=== PATIENT | male | born 1950 | race Caucasian/White ===

== ENCOUNTER 2019-07-24 10:48 | Inpatient (IN) | payer OTHER, SELFPAY ==
[2019-07-24] VITALS (10 sets, daily range): BP systolic 117–156; BP diastolic 71–92; PULSE 70–92; RESP 14–20; TEMP 36.6–37; O2SAT 94–98; BMI 31.7
--- NOTE | 2019-07-24 11:20 | XR_ITS ---
WS: [id number] PORTABLE CHEST HISTORY: abd pain COMPARISON: None available. Lungs are clear and well expanded. No pleural effusion or pneumothorax. Cardiac size: Normal. Mediastinum/Aorta: Normal mediastinum. No osseous abnormality seen. XR/XR chest 1V portable [id number] IMPRESSION: Unremarkable portable chest.
--- NOTE | 2019-07-24 11:20 | CT_ITS ---
WS: [id number] CT ABDOMEN AND PELVIS WITH CONTRAST HISTORY: Abdominal pain. TECHNIQUE: Imaging performed of the abdomen and pelvis with IV contrast. Single phase imaging of the abdomen. Coronal and sagittal reformats are submitted. All CT scans at [facility] use at least one of these dose optimization techniques: automated exposure control; mA and/or kV adjustment per patient size (includes targeted exams where dose is matched to clinical indication); or iterativ e reconstruction. IV CONTRAST: Omnipaque 300; 95 mL IV. Oral contrast: No DLP: 1595.26 mGy.cm COMPARISON: None available. Lower thorax: Lung bases are clear. Heart is normal size. No hiatal hernia. Liver/biliary system: Normal size with no intrahepatic dilatation. Gallbladder: Gallbladder is contracted. No adjacent inflammation. Pancreas: Normal. Spleen: Normal. Adrenal glands: Normal. Right kidney: Normal. Left kidney: Normal. Aorta: Mild atherosclerosis. Lymphadenopathy: None. Free fluid: None. GI tract: Normal appendix. High-grade small bowel obstruction. Proximal and mid small bowel loops are dilated with fluid measuring up to 3.8 cm in diameter. Distal small bowel loops are collapsed. Suspe ct the transition point may be just to the RIGHT of midline. Abdominal wall: Unremarkable abdominal wall. No hernia. Pelvis: Inguinal canals are patent bilaterally containing fat only. Prostate gland is slightly enlarg ed. Bones: Unremarkable. CT/CT abdomen pelvis w con* [id number] IMPRESSION: 1. High-grade mid small bowel obstruction. I suspect the transition point is i n the mid small bowel just to the RIGHT of midline. May be due to adhesions. 2. No free fluid or free air at this time. 3. Normal appendix.
[2019-07-24] MEDS: ondansetron 2 mg/ML SDV 2 mL 4 MG IVP (11:28)
[2019-07-24] MEDS: sodium chloride 0.9% 1,000 ML 999 ML IV (11:29)
[2019-07-24 11:31] LABS: Basophils % 0.3 %; Hematocrit 44.9 % (42.0-52.0); Hemoglobin 15.2 g/dL (11.7-16.6); Lymphocytes % 9.5 %; Mean Corpuscular HGB Conc 33.9 g/dL (30.0-36.0); Mean Corpuscular Hemoglobin 31.3 pg (28.0-34.0); Mean Corpuscular Volume 92.4 fL (80-94); Mean Platelet Volume 9.6 fL (7.4-10.4); Monocytes # 0.8 10^3/uL (0.2-0.9); Monocytes % 7.4 %; Neutrophils # 8.6 10^3/uL (1.8-7.7); Neutrophils % 82.2 %; Nucleated Red Blood Cells % 0 %; Platelet Count 296 10^3/cmm (130-400); Red Blood Count 4.86 10^6/uL (4.1-5.3); Red Cell Distribution Width 13.3 % (12.1-15.1); White Blood Count 10.5 10^3/uL (4.0-10.0)
--- NOTE | 2019-07-24 11:39 | ED_ITS ---
HPI - Abdominal Pain General: Chief Complaint: Abdominal Pain Stated Complaint: ABD PAIN Time Seen by Provider: 07/24/19 11:13 History of Present Illness: Associated Symptoms: Reports nausea Review of Systems General: Reports: 10 or more systems reviewed and unremarkable except in HPI and below GI: Reports: abdominal pain and nausea PFSH ED PFSH: Social History Smoking and tobacco status: former smoker Physical Exam Const: COMMON NORMALS: no apparent distress, average body habitus, oriented x3, no limitations, healthy appearing, alert and well nourished HENMT: COMMON NORMALS: normocephalic, head/scalp atraumatic, hearing grossly normal bilaterally, external ears normal, EAC's normal, TM's normal bilaterally, external nose normal, nasal mucous membranes and turbinates normal, moist oral mucous membranes, oropharynx normal, dentition normal and gingiva normal HEAD & SCALP: normocephalic and atraumatic NOSE: external nose normal and nasal mucous membranes and turbinates normal EXTERNAL EAR: Yes external ears normal EXTERNAL AUDITORY CANAL: EAC's normal TYMPANIC MEMBRANE: TM's normal bilaterally Eye: COMMON NORMALS: PERRL, EOMs intact bilaterally, conjunctivae normal, no scleral icterus, no papilledema, normal visual huntley by confrontation and fundi normal bilaterally CONJUNCTIVA: Yes conjunctivae normal PUPIL: Yes PERRL DIRECT OPHTHALMOSCOPY: Yes no papilledema and Yes fundi normal bilaterally Neck/C-Spine: COMMON NORMALS: full ROM, no lymphadenopathy, supple, no meningeal signs, no JVD, thyroid normal and no carotid bruits THYROID: thyroid normal Chest: COMMONS NORMALS: inspection of chest normal and palpation of chest normal Resp: COMMON NORMALS: normal respiratory effort, no retractions, no use of accessory muscles, clear to auscultation bilaterally and percussion normal AUSCULTATION: clear to auscultation bilaterally PERCUSSION: percussion normal Cardio: COMMON NORMALS: no JVD, regular rate, regular rhythm, S1 normal heart sound, S2 normal heart sound, no gallops, no clicks, no murmurs, no rub and peripheral pulses 2+ throughout RATE: regular rate RHYTHM: regular rhythm HEART SOUNDS: S1 normal and S2 normal PERIPHERAL PULSES: pulses 2+ throughout GI: COMMON NORMALS: soft to palpation, no hepatosplenomegaly, no masses and no bruits INSPECTION: Yes abdominal distension AUSCULTATION: Yes hypoactive bowel sounds PALPATION: Yes soft, Yes tender Details: other, Yes no hepatosplenomegaly, No hepatomegaly, No splenomegaly, No hernia, No pulsatile mass and No abdominal wall crepitus : COMMON NORMALS: Yes no CVA tenderness BLADDER/KIDNEY EXAM: Yes no CVA tenderness Back/Pelvis: COMMON NORMALS: no CVA tenderness, thoracic and lumbar spine normal to inspection, no thoracic nor lumbar tenderness, thoraco-lumbar ROM normal and straight leg raise negative bilaterally Extremity: COMMON NORMALS: normal to inspection, full ROM, normal capillary refill, no joint enlargement, no clubbing, cyanosis or edema, no calf tenderness and no pedal edema Neuro: COMMON NORMALS: oriented x3 SENSORIUM/ORIENTATION: Yes alert MENINGEAL SIGNS: Yes no meningeal signs Skin: COMMON NORMALS: no rashes or lesions noted, no wounds, skin turgor normal, no jaundice, no petechiae and no mottling GENERAL SKIN EXAM: no rashes or lesions noted and turgor normal Procedures Intubation Mg Given: 20 Mg Given: 200 Course Vital Signs: Vital signs: Vital Signs Temperature 98.1 F 07/24/19 11:08 Pulse Rate 85 07/24/19 12:25 Respiratory Rate 16 07/24/19 12:25 Blood Pressure 142/92 07/24/19 12:25 Pulse Oximetry 96 07/24/19 12:25 MDM - Abdominal Pain Lab Data: Labs: Lab Results 07/24/19 07/24/19 07/24/19 Range/Units 11:25 11:25 11:25 WBC 10.5 H (4.0-10.0) 10^3/ uL RBC 4.86 (4.1-5.3) 10^6/u L Hgb 15.2 (11.7-16.6) g/dL Hct 44.9 (42.0-52.0) % MCV 92.4 (80-94) fL MCH 31.3 (28.0-34.0) pg MCHC 33.9 (30.0-36.0) g/dL RDW 13.3 (12.1-15.1) % Plt Count 296 (130-400) 10^3/c mm MPV 9.6 (7.4-10.4) fL Neut % (Auto) 82.2 % Lymph % (Auto) 9.5 % [place] % (Auto) 7.4 % Eos % (Auto) 0.0 % Baso % (Auto) 0.3 % Neut # (Auto) 8.6 H (1.8-7.7) 10^3/u L Lymph # (Auto) 1.0 (0.8-4.8) 10^3/u L [place] # (Auto) 0.8 (0.2-0.9) 10^3/u L Eos # (Auto) 0.0 (0.0-0.8) 10^3/u L Baso # (Auto) 0.0 (0.0-0.1) 10^3/u L Nucleated RBC % (a uto) 0 % Nucleated RBCs # 0.0 /100WBC Sodium 136 (136-145) mmol/L Potassium 4.1 (3.5-5.1) mmol/L Chloride 95 L (98-107) mmol/L Carbon Dioxide 27 (22-29) mmol/L Anion Gap 18.1 (5-19) BUN 15 (8-23) mg/dL Creatinine 1.0 (0.7-1.2) mg/dL GFR Calculation 74.1 L (90-130) mL/min Glucose 115 (65-115) mg/dL Calculated Osmolal ity 279 L (285-295) mOsm/k g Lactate 0.8 (0.5-2.2) mmol/L Calcium 10.1 (8.5-10.5) mg/dL Total Bilirubin 0.6 (0.15-1.2) mg/dL AST 25 (0-40) U/L ALT 16 (0-41) U/L Alkaline Phosphata se 88 (40-130) IU/L Total Protein 8.0 (6.6-8.7) g/dL Albumin 5.2 (3.5-5.2) g/dL Globulin 2.8 (1.3-4.6) g/dL Lipase 5 L (13-60) U/L Urine Color (Yellow) Urine Appearance (CLEAR) Urine pH (5-7) Ur Specific Gravit y (1.005-1.030) Urine Protein (Negative) Urine Glucose (UA) (Normal) Urine Ketones (Negative) Urine Blood (Negative) Urine Nitrate (Negative) Urine Bilirubin (NEGATIVE) Prot Sulfosalicyli c Acd Urine Urobilinogen (Negative) mg/dL Ur Leukocyte Samreen ase (Negative) Urine RBC (0-2) /hpf Urine WBC (0-5) /hpf Ur Squamous Epith Cells (0-5) Urine Bacteria (NONE) 07/24/19 Range/Units 11:39 WBC (4.0-10.0) 10^3/ uL RBC (4.1-5.3) 10^6/u L Hgb (11.7-16.6) g/dL Hct (42.0-52.0) % MCV (80-94) fL MCH (28.0-34.0) pg MCHC (30.0-36.0) g/dL RDW (12.1-15.1) % Plt Count (130-400) 10^3/c mm MPV (7.4-10.4) fL Neut % (Auto) % Lymph % (Auto) % [place] % (Auto) % Eos % (Auto) % Baso % (Auto) % Neut # (Auto) (1.8-7.7) 10^3/u L Lymph # (Auto) (0.8-4.8) 10^3/u L [place] # (Auto) (0.2-0.9) 10^3/u L Eos # (Auto) (0.0-0.8) 10^3/u L Baso # (Auto) (0.0-0.1) 10^3/u L Nucleated RBC % (a uto) % Nucleated RBCs # /100WBC Sodium (136-145) mmol/L Potassium (3.5-5.1) mmol/L Chloride (98-107) mmol/L Carbon Dioxide (22-29) mmol/L Anion Gap (5-19) BUN (8-23) mg/dL Creatinine (0.7-1.2) mg/dL GFR Calculation (90-130) mL/min Glucose (65-115) mg/dL Calculated Osmolal ity (285-295) mOsm/k g Lactate (0.5-2.2) mmol/L Calcium (8.5-10.5) mg/dL Total Bilirubin (0.15-1.2) mg/dL AST (0-40) U/L ALT (0-41) U/L Alkaline Phosphata se (40-130) IU/L Total Protein (6.6-8.7) g/dL Albumin (3.5-5.2) g/dL Globulin (1.3-4.6) g/dL Lipase (13-60) U/L Urine Color Yellow (Yellow) Urine Appearance Hazy A (CLEAR) Urine pH 8 H (5-7) Ur Specific Gravit y 1.010 (1.005-1.030) Urine Protein Neg (Negative) Urine Glucose (UA) Norm (Normal) Urine Ketones 2+ H (Negative) Urine Blood Neg (Negative) Urine Nitrate Negative (Negative) Urine Bilirubin Neg (NEGATIVE) Prot Sulfosalicyli c Acd Negative Urine Urobilinogen Norm (Negative) mg/dL Ur Leukocyte Samreen ase Negative (Negative) Urine RBC None (0-2) /hpf Urine WBC None (0-5) /hpf Ur Squamous Epith Cells 5-10 H (0-5) Urine Bacteria 1+ H (NONE) Discharge Plan Discharge Patient Disposition: Admitted As Inpatient Clinical Impression: Small bowel obstruction Condition: Fair Referrals: Iván Horne [Primary Care Provider] - Coding Level of Care Code ED Track Supervisor for Chg Fwd Exam Comprehensive
[2019-07-24 11:45] LABS: Alanine Aminotransferase 16 U/L (0-41); Albumin Level 5.2 g/dL (3.5-5.2); Alkaline Phosphatase 88 IU/L (40-130); Anion Gap 18.1 (5-19); Aspartate Amino Transferase 25 U/L (0-40); Blood Urea Nitrogen 15 mg/dL (8-23); Calcium 10.1 mg/dL (8.5-10.5); Carbon Dioxide 27 mmol/L (22-29); Chloride 95 mmol/L (98-107); Globulin 2.8 g/dL (1.3-4.6); Glomerular Filtration Rate 74.1 mL/min (90-130); Glucose 115 mg/dL (65-115); Lipase 5 U/L (13-60); Osmolality Calculated 279 mOsm/kg (285-295); Potassium 4.1 mmol/L (3.5-5.1); Sodium 136 mmol/L (136-145); Total Bilirubin 0.6 mg/dL (0.15-1.2)
[2019-07-24 11:46] LABS: Lactate (Lactic Acid level) 0.8 mmol/L (0.5-2.2)
[2019-07-24 12:04] LABS: Add Urine Microscopic? YES; Bilirubin Urine Neg (NEGATIVE); Blood Urine Neg (Negative); Glucose Urine UA Norm (Normal); Ketones Urine 2+ (Negative); Leukocyte Esterase Urine Negative (Negative); Nitrate Urine Negative (Negative); Protein Urine Neg (Negative); Sulfosalicylic Acid Urine Negative; Urine Appearance Hazy (CLEAR); Urine Color Yellow (Yellow); Urobilinogen Urine Norm (Negative); pH Urine 8 (5-7)
[2019-07-24 12:12] LABS: Add Urine Culture? No; Bacteria Urine 1+
[2019-07-24] MEDS: iohexol 300 mg/mL 100 mL Btl IV (12:12)
[2019-07-24] MEDS: sodium chloride 0.9% 1,000 ML 150 ML IV ×3 (12:57→23:15)
--- NOTE | 2019-07-24 13:00 | PC.NURSE ---
Dr Aguilar at bedside speaking with patient.
--- NOTE | 2019-07-24 13:24 | PM.HP ---
Providers/Chief Complaint Admitting Physician: Kar Aguilar MD Primary Care Provider: Iván Horne Chief Complaint: SMALL BOWEL OBSTRUCTION History of Present Illness Sharif Livingston is a 69 year old male presents to ED with severe mid abdomen sharp non radiating pain that woke him up this morning. He denied previous history of the same but reports that for the last couple of years he had some generalized discomfort and lately noted to get full and distended with even minimal oral intake. He was nauseated this morning and even tried to vomit but had minimal bilious fluid out only. He had normal formed bowel movement this morning without evidence of hematochezia or melena. He had no flatus today. Denies any alleviating or aggravating factors. He went to bed in his usual state of health. He had colonoscopy 2 years ago with couple of polyps removed. [facility] and reports that Dr. Fraire who is now retired was planning to do further evaluation of his abdominal complaints with imaging. He denies any previous abdominal surgery. He recently seen [facility] [employer] and his CPAP was changed to BiPAP for treatment of MERY but he can not tolerate it. He denies any previous history of heart disease, diabetes or stroke. 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 He denies any chest pain even with exersion. He denies shortness of breath but reports dyspnea on fast and prolonged walking which did not change for many years. In ED he was found to have small bowel obstruction with transition point which is concerning since patient had no previous bowel surgeries and Dr. Ang was consulted as patient likely will require surgery. Review of Systems Const: Denies: fever or chills Eyes: Denies: change in vision ENMT: Denies: throat pain or change in hearing Card: Denies: chest pain, edema or lightheadedness Resp: Reports: non-productive cough (for last 2-3 days); Denies: shortness of breath or productive cough GI: Reports: abdominal pain, nausea, vomiting and difficulty swallowing (described ad I can choke with any oral intake for many years off and on ); Denies: diarrhea, constipation, blood in stool or black tarry stool Musc: Denies: joint pain or joint swelling Skin/Breast: Denies: rash or redness Neuro: Reports: headache (off and on. takes tylenol as needed); Denies: weakness in extremities Psych: Denies: depression Endo: Denies: excessive sweating Braden/Lymph: Denies: easy bleeding or tender lymph nodes All/Imm: Denies: throat swelling Medications/Allergies Home Medications Medication Instructions Recorded Confirmed Last Taken Type aspirin 81 mg PO DAILY 07/24/19 07/24/19 07/23/19 History coenzyme Q10 100 mg PO DAILY 07/24/19 07/24/19 07/23/19 History multivitamin 1 tab PO DAILY 07/24/19 07/24/19 07/23/19 History omeprazole 20 mg PO DAILY 07/24/19 07/24/19 07/23/19 History Allergies Allergy/AdvReac Type Severity Reaction Status Date / Time No Known Allergies Allergy Verified 07/24/19 11:12 PFSH Acute PFSH: Medical History (Updated 07/24/19 @ 13:52 by Kar Aguilar MD) Chronic GERD Left ACL tear s/p surgery MERY (obstructive sleep apnea) Surgical History (Updated 07/24/19 @ 13:46 by Kar Aguilar MD) H/O vasectomy Social History (Updated 07/24/19 @ 13:48 by Kar Aguilar MD) Smoking and tobacco status: former smoker Quit status (tobacco): quit date established Planned quit date: 05/06/95 Alcohol intake: current Alcohol intake frequency: few times a month Alcohol type: beer Substance/Drug Use: never Lives independently: Yes Household members: spouse Marital status: Current occupational status: retired History of recent travel: No Vitals/I&O/Wt Last Vital Signs Temp 98.1 F 07/24/19 11:08 Pulse 92 07/24/19 13:00 Resp 19 H 07/24/19 13:00 BP 143/89 07/24/19 13:00 Pulse Ox 95 07/24/19 13:00 Weight last 48 hrs Weight 97.522 kg Physical Exam Const: COMMON NORMALS: no apparent distress, oriented x3 and alert HENMT: COMMON NORMALS: normocephalic and head/scalp atraumatic HEAD & SCALP: normocephalic and atraumatic Eye: COMMON NORMALS: EOMs intact bilaterally, conjunctivae normal and no scleral icterus CONJUNCTIVA: Yes conjunctivae normal Neck/C-Spine: COMMON NORMALS: no lymphadenopathy and no meningeal signs Lymph: LYMPHATIC: no lymphadenopathy noted Chest: COMMONS NORMALS: palpation of chest normal Resp: COMMON NORMALS: no use of accessory muscles and clear to auscultation bilaterally AUSCULTATION: clear to auscultation bilaterally Cardio: COMMON NORMALS: regular rate, regular rhythm and no murmurs RATE: regular rate RHYTHM: regular rhythm OTHER: No lower extremity edema GI: COMMON NORMALS: soft to palpation INSPECTION: Yes abdominal distension PALPATION: Yes soft, No firm, Yes tender, No guarding and No rigid RECTAL EXAM: Yes deferred : COMMON NORMALS: Yes no CVA tenderness BLADDER/KIDNEY EXAM: Yes no CVA tenderness Back/Pelvis: COMMON NORMALS: no CVA tenderness and thoracic and lumbar spine normal to inspection Extremity: COMMON NORMALS: normal to inspection and normal capillary refill Neuro: COMMON NORMALS: oriented x3 and no focal motor deficits SENSORIUM/ORIENTATION: Yes alert MENINGEAL SIGNS: Yes no meningeal signs Psych: COMMON NORMALS: mental status grossly normal, thought process normal and cooperative THOUGHT PROCESS: normal thought process Skin: COMMON NORMALS: no rashes or lesions noted GENERAL SKIN EXAM: no rashes or lesions noted Data : 07/24/19 11:25 07/24/19 11:25 A&P Assessment and plan (1) Small bowel obstruction: Status: Acute (2) MERY (obstructive sleep apnea): can not tolerate BiPAP/CPAP. Status: Acute Additional A&P Information PLAN: Continue IV fluids Place NG tube to low intermittent wall suction. Awaiting surgical evaluation. Patient is a low risk for adverse perioperative cardiac outcome and this was discussed with patient and he agrees to proceed with surgery if deemed necessary. Attestations Medical Necessity Statement*: Patient with small bowel obstruction requires close inpatient monitoring and treatment. I expect patient will require more than 2 midnights. 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
--- NOTE | 2019-07-24 14:23 | PC.NURSE ---
Patient arrived on unit.
[2019-07-24] MEDS: pantoprazole 40 mg SDV IVP (16:36)
[2019-07-24] MEDS: heparin 5,000 unit/mL INJ 1 mL 5000 UNIT SUBCUT ×2 (16:37→21:18)
--- NOTE | 2019-07-24 18:39 | PC.NURSE ---
tylenol order RCVD order for Tylenol from Dr Aguilar. Patient Safety Officer put order in for Tylenol. Per Dr Aguilar, clamp NG for 30min after administration of Tylenol.
[2019-07-24] MEDS: acetaminophen 325 mg Tablet 650 MG PO (19:38)
[2019-07-25] VITALS (7 sets, daily range): BP systolic 106–150; BP diastolic 69–88; PULSE 64–108; RESP 16–20; TEMP 36.9–37.6; O2SAT 92–96
[2019-07-25] MEDS: pantoprazole 40 mg SDV IVP ×2 (01:25→14:46)
[2019-07-25] MEDS: acetaminophen 325 mg Tablet 650 MG PO ×2 (01:30→21:29)
[2019-07-25 05:08] LABS: Basophils # 0.1 10^3/uL (0.0-0.1); Basophils % 0.5 %; Eosinophils # 0.1 10^3/uL (0.0-0.8); Eosinophils % 1.1 %; Hematocrit 39.8 % (42.0-52.0); Hemoglobin 13.1 g/dL (11.7-16.6); Lymphocytes # 1.8 10^3/uL (0.8-4.8); Lymphocytes % 17.8 %; Mean Corpuscular HGB Conc 32.9 g/dL (30.0-36.0); Mean Corpuscular Hemoglobin 30.7 pg (28.0-34.0); Mean Corpuscular Volume 93.2 fL (80-94); Mean Platelet Volume 9.9 fL (7.4-10.4); Monocytes # 1.1 10^3/uL (0.2-0.9); Monocytes % 11.1 %; Neutrophils # 6.8 10^3/uL (1.8-7.7); Neutrophils % 69.1 %; Nucleated Red Blood Cells % 0 %; Platelet Count 242 10^3/cmm (130-400); Red Blood Count 4.27 10^6/uL (4.1-5.3); Red Cell Distribution Width 13.5 % (12.1-15.1); White Blood Count 9.9 10^3/uL (4.0-10.0)
[2019-07-25] MEDS: sodium chloride 0.9% 1,000 ML 150 ML IV ×3 (05:21→21:31)
[2019-07-25] MEDS: heparin 5,000 unit/mL INJ 1 mL 5000 UNIT SUBCUT ×3 (05:22→21:33)
[2019-07-25 05:32] LABS: Alanine Aminotransferase 14 U/L (0-41); Albumin Level 3.9 g/dL (3.5-5.2); Alkaline Phosphatase 69 IU/L (40-130); Aspartate Amino Transferase 18 U/L (0-40); Blood Urea Nitrogen 11 mg/dL (8-23); Calcium 8.8 mg/dL (8.5-10.5); Carbon Dioxide 24 mmol/L (22-29); Chloride 107 mmol/L (98-107); Globulin 3.1 g/dL (1.3-4.6); Glomerular Filtration Rate 83.7 mL/min (90-130); Glucose 106 mg/dL (65-115); Magnesium 2.2 mg/dL (1.7-2.3); Osmolality Calculated 284 mOsm/kg (285-295); Phosphorus 2.7 mg/dL (2.5-4.5); Sodium 139 mmol/L (136-145); Total Bilirubin 0.5 mg/dL (0.15-1.2)
--- NOTE | 2019-07-25 08:07 | XR_ITS ---
WS: [id number] ABDOMEN 2 VIEW(S) HISTORY: sbo COMPARISON: 07/24/2019. Nasogastric tube has been placed with tip coiled in the fundus. No free air. There is air throughout the entire GI tract. There are still small bowel fluid-filled loops of bowel with less distention. Lumbar spondylosis. XR/XR abdomen min 2V [id number] IMPRESSION: 1. Nasogastric tube with tip coiled in the fundus of the stomach. 2. Improving small bowel distention without complete obstruction.
--- NOTE | 2019-07-25 09:27 | PC.CHAP ---
Pastoral Care Encounter/Spiritual Assessment Type of Contact [] Declined kiss mixer visit [] Patient/Family/Request visit [] Outpatient visit [] Follow-up visit [] Physician referral [] Code/Alert [x] Routine visit [] Staff referral [] Actively dying [] Patient sleeping [] Family support [] [] Out of room [] Palliative care [] [] Receiving care in room [] Pre-surgical visit [] Trauma [] Long length of stay [] ICU visit [] Other: Relational/Emotional Strength [x] Patient feels connected with others/family/visitors/staff [] Distress [] Loneliness/isolation [] Abandonment Spirituality of Patient [x] Person of Renata [x] Attends Muslim of their Renata [x] Believes in Prayer [x] Reads Bible or Temple materials [] There are Spiritual issues to be addressed [employer] Team Member Interventions [x] Prayer [x] Active listening [x] Non-anxious presence [] Spiritual/emotional support [] Crisis/trauma care [] Spiritual counseling [] Bereavement support [] Provided bereavement packet [x] Provided Bible/devotional materials [] Provided toy/stuffed animal, coloring book to patient or family member [] Provided Communion [] Anointing/S[place]ney [] Salvation [x] Completed spiritual assessment [] Other: Impact on Illness or Injury [] Angry [] Fearful [] Anxious [] Often cries [] Exhaustion [] Unable to work [] Unable to attend mandaen [] Unable to walk/stand [] Unable to read [] Unable to drive [] Unable to eat/drink [] Unable to sleep [] Unable to be with family [] Patient intubated [] Other: Summary patient say feeling better Time spent with patient 15 min
[2019-07-25] MEDS: aspirin 81 mg Chew Tablet PO (09:59)
--- NOTE | 2019-07-25 10:11 | PM.PN ---
Subjective Subjective: Interval history: Patient denies any shortness of breath or chest pain. Reports passing gas this morning but had no bowel movement since yesterday morning. Reports that his abdominal distention and pain gone. He had minimal NG tube output. Vitals/I&O/Wt Last Vital Signs Temp 98.4 F 07/25/19 07:51 Pulse 82 07/25/19 07:51 Resp 18 07/25/19 07:51 BP 112/74 07/25/19 07:51 Pulse Ox 94 07/25/19 07:51 07/24/19 07/25/19 07/25/19 22:59 06:59 14:59 Intake Total 1397.5 / 2397.5 1142.5 / 3540.0 Output Total 600 / 600 770 / 1370 780 / 780 Balance 797.5 / 1797.5 372.5 / 2170.0 -780 / -780 Weight last 48 hrs Weight 97.522 kg Physical Exam Const: COMMON NORMALS: no apparent distress and oriented x3 Resp: COMMON NORMALS: normal respiratory effort and clear to auscultation bilaterally AUSCULTATION: clear to auscultation bilaterally Cardio: COMMON NORMALS: regular rate, regular rhythm and S2 normal heart sound RATE: regular rate RHYTHM: regular rhythm HEART SOUNDS: S2 normal OTHER: No lower extremity edema GI: COMMON NORMALS: normal to inspection, nondistended, normoactive bowel sounds, soft to palpation and non-tender PALPATION: Yes soft Neuro: COMMON NORMALS: oriented x3 and no focal motor deficits Data : 07/25/19 04:48 07/25/19 04:48 A&P Assessment and plan (1) Small bowel obstruction: Status: Acute (2) MERY (obstructive sleep apnea): can not tolerate BiPAP/CPAP. Status: Acute Additional A&P Information PLAN: Continue IV fluids We will start patient on lactulose and try enema Discussed with Dr. Ang yesterday. It appears that constipation could possibly play a major role. Attestations Medical Necessity Statement*: Patient with small bowel obstruction requires close inpatient monitoring and treatment until deemed safe for discharge. 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
[2019-07-25] MEDS: mineral oil ENEMA 133 mL PR (12:27)
--- NOTE | 2019-07-25 13:59 | PM.CONSULT ---
Providers/Reason For Consult Consulting Physican/Specialty*: Dr. Aguilar Reason for Consult*: Small bowel obstruction Attending Physician: Kar Aguilar MD Primary Care Provider: Iván Horne History of Present Illness History of Present Illness Sharif Livingston is a 69 year old male who presented to the ER with generalized abdominal pain associated nausea yesterday. Patient states that he woke up the night before at around 130 with the symptoms. Patient has never had any abdominal surgeries and he had a colonoscopy a few years ago when polyps were removed. He states that he takes Metamucil every day and he has daily bowel movements. Patient states he had nausea but no vomiting. No fevers or chills. No prior abdominal surgeries. An NG tube was placed and this morning he feels a lot better. His distention has resolved. He states that he had a large bowel movement. Review of Systems General: Reports: 10 or more systems reviewed and unremarkable except in HPI and below Meds/Allergies Home Medications and Allergies Home Medications Medication Instructions Recorded Confirmed Type aspirin 81 mg PO DAILY 07/24/19 07/24/19 History coenzyme Q10 100 mg PO DAILY 07/24/19 07/24/19 History multivitamin 1 tab PO DAILY 07/24/19 07/24/19 History omeprazole 20 mg PO DAILY 07/24/19 07/24/19 History Allergies Allergy/AdvReac Type Severity Reaction Status Date / Time No Known Allergies Allergy Verified 07/24/19 11:12 Current Medications Current Medications Generic Name Dose Route Start Last Admin Trade Name Freq PRN Reason Stop Dose Admin Acetaminophen 650 mg 07/24/19 18:38 07/25/19 01:30 Tylenol PO 650 mg Q6H PRN Administration MILD PAIN Aspirin 81 mg 07/25/19 09:00 07/25/19 09:59 Aspirin Chewable PO 81 mg DAILY JAMIA Administration Heparin Sodium (Beef Lung) 5,000 unit 07/24/19 14:00 07/25/19 05:22 Heparin SUBCUT 5,000 unit Q8H JAMIA Administration Sodium Chloride 1,000 mls @ 150 mls/hr 07/24/19 13:00 07/25/19 05:21 Sodium Chloride 0.9% IV 150 mls/hr .Q6H40M JAMIA Administration Pantoprazole Sodium 40 mg 07/24/19 14:15 07/25/19 01:25 Protonix IVP 40 mg Q12H JAMIA Administration PFSH Acute PFSH: Medical History Chronic GERD Left ACL tear s/p surgery MERY (obstructive sleep apnea) Surgical History H/O vasectomy Status post colonoscopy with polypectomy Social History Smoking and tobacco status: former smoker Quit status (tobacco): quit date established Planned quit date: 05/06/95 Alcohol intake: current Alcohol intake frequency: few times a month Alcohol type: beer Substance/Drug Use: never Lives independently: Yes Household members: spouse Marital status: Current occupational status: retired History of recent travel: No Vitals/I&O/Wt Last Vital Signs Temp 98.7 F 07/25/19 11:43 Pulse 108 H 07/25/19 11:43 Resp 18 07/25/19 11:43 BP 150/88 07/25/19 11:43 Pulse Ox 95 07/25/19 11:43 07/24/19 07/25/19 07/25/19 22:59 06:59 14:59 Intake Total 1397.5 / 3540.0 1142.5 / 3540.0 Output Total 600 / 1370 770 / 1370 1330 / 1330 Balance 797.5 / 2170.0 372.5 / 2170.0 -1330 / -1330 Weight last 48 hrs Weight 215 lb Physical Exam Narrative: EXAM NARRATIVE: HEENT: Normocephalic, NG tube right nare Eye: Sclera /conjunctiva normal Respiratory and chest: Bilateral clear breath sounds on auscultation Cardiovascular: Normal S1 and S2 heart sounds Abdomen: Soft to palpation, nontender, nondistended Neurological: Oriented to place person and time Skin: Intact, no lesions appreciated on gross exam A&P Assessment and plan (1) Small bowel obstruction: 69-year-old gentleman who presented with abdominal pain and nausea yesterday with CT scan findings concerning for small bowel obstruction. Patient had a large amount of fecal retention noted on the CT scan. He is hemodynamically stable, no evidence of peritonitis. This morning he feels a lot better and had a large bowel movement after an enema. Clamp NG tube Start clear liquid diet 1 bottle of magnesium citrate today Soapsuds enema later today Start lactulose 15 cc p.o. 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
[2019-07-25] MEDS: magnesium citrate Btl 296 mL PO (14:46)
[2019-07-25] MEDS: lactulose oral liq 20 gm/30 mL UDC 30 GM PO ×2 (14:46→21:32)
[2019-07-26] VITALS: BP 139/92; PULSE 77; RESP 18; TEMP 36.7; O2SAT 94
[2019-07-26] MEDS: pantoprazole 40 mg SDV IVP (01:17)
[2019-07-26 04:00] VITALS: BP 156/97; PULSE 87; RESP 16; TEMP 36.8; O2SAT 94
[2019-07-26] MEDS: heparin 5,000 unit/mL INJ 1 mL 5000 UNIT SUBCUT (05:11)
[2019-07-26] MEDS: sodium chloride 0.9% 1,000 ML 150 ML IV (05:11)
[2019-07-26 05:47] LABS: Basophils % 0.3 %; Eosinophils # 0.1 10^3/uL (0.0-0.8); Eosinophils % 1.2 %; Hematocrit 40.4 % (42.0-52.0); Lymphocytes # 1.4 10^3/uL (0.8-4.8); Lymphocytes % 14.5 %; Mean Corpuscular HGB Conc 32.2 g/dL (30.0-36.0); Mean Corpuscular Hemoglobin 31.3 pg (28.0-34.0); Mean Corpuscular Volume 97.1 fL (80-94); Mean Platelet Volume 10.4 fL (7.4-10.4); Monocytes # 1.2 10^3/uL (0.2-0.9); Neutrophils # 6.6 10^3/uL (1.8-7.7); Neutrophils % 70.5 %; Nucleated Red Blood Cells % 0 %; Positive C 1; Red Blood Count 4.16 10^6/uL (4.1-5.3); Red Cell Distribution Width 13.5 % (12.1-15.1); White Blood Count 9.3 10^3/uL (4.0-10.0)
[2019-07-26 05:56] LABS: Alanine Aminotransferase 11 U/L (0-41); Albumin Level 3.8 g/dL (3.5-5.2); Alkaline Phosphatase 68 IU/L (40-130); Anion Gap 13.7 (5-19); Aspartate Amino Transferase 15 U/L (0-40); Blood Urea Nitrogen 8 mg/dL (8-23); Calcium 9.3 mg/dL (8.5-10.5); Carbon Dioxide 23 mmol/L (22-29); Chloride 107 mmol/L (98-107); Globulin 3.1 g/dL (1.3-4.6); Glomerular Filtration Rate 83.7 mL/min (90-130); Glucose 105 mg/dL (65-115); Magnesium 2.2 mg/dL (1.7-2.3); Osmolality Calculated 286 mOsm/kg (285-295); Phosphorus 2.4 mg/dL (2.5-4.5); Potassium 3.7 mmol/L (3.5-5.1); Sodium 140 mmol/L (136-145); Total Bilirubin 0.5 mg/dL (0.15-1.2); Total Protein 6.9 g/dL (6.6-8.7)
[2019-07-26 06:31] LABS: Platelet Count 302 10^3/cmm (130-400)
[2019-07-26 07:56] VITALS: PULSE 63; O2SAT 94
[2019-07-26 08:00] VITALS: BP 122/80; PULSE 70; RESP 18; TEMP 36.7; O2SAT 96
[2019-07-26] MEDS: docusate sodium 100 mg Capsule PO (08:25)
[2019-07-26] MEDS: lactulose oral liq 20 gm/30 mL UDC 30 GM PO (08:25)
[2019-07-26] MEDS: lactulose oral liq 20 gm/30 mL UDC 10 GM PO (08:25)
[2019-07-26] MEDS: aspirin 81 mg Chew Tablet PO (08:25)
--- NOTE | 2019-07-26 09:23 | P.PN_ITS ---
Subjective Subjective: Interval history: Patient had multiple bowel movements yesterday with enema and magnesium citrate, no nausea or vomiting with NG tube clamped Vitals/I&O/Wt Last Vital Signs Temp 98.1 F 07/26/19 08:00 Pulse 70 07/26/19 08:00 Resp 18 07/26/19 08:00 BP 122/80 07/26/19 08:00 Pulse Ox 96 07/26/19 08:00 07/25/19 07/26/19 07/26/19 22:59 06:59 14:59 Intake Total 1800 / 3920 1120 / 3920 Balance 1800 / 2590 1120 / 2590 Weight last 48 hrs Weight 215 lb Physical Exam Narrative: EXAM NARRATIVE: Abdomen: Soft, nontender, nondistended Data : 07/26/19 05:05 07/26/19 05:05 A&P Assessment and plan (1) Small bowel obstruction: Small bowel obstruction, resolved with bowel rest and NG tube Advance to full liquid diet DC home today and advance as tolerated No follow-up needed Discharge home on bowel regimen Status: Acute Attestations Medical Necessity Statement*: DC home today Coding Level of Care Code 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
--- NOTE | 2019-07-26 10:26 | PM.DCS ---
Discharge Providers Date of Admission: 07/24/19 12:52 Date of Discharge: July 26, 2019 Attending Provider at Admission: Kar Aguilar MD Attending Provider at Discharge: Kar Aguilar MD Primary Care Provider: Iván Horne Diagnoses at Discharge Discharge Diagnosis (1) Small bowel obstruction: Status: Acute Reason for Visit Reason for Visit: Reason For Visit: SMALL BOWEL OBSTRUCTION Hospital Course Discharge Summary: Patient presented with abdominal pain and signs and symptoms of small bowel obstruction which felt to be related to significant underlying constipation. Patient was treated conservatively and gradually improved and this morning reports feeling much better and strong enough to be dismissed home. He was able to tolerate clear liquid diet. He had multiple diarrheal bowel movements with bowel regimen and denies any abdominal pain this morning. He is passing gas. He is ambulating without difficulty. He denies any shortness of breath or chest pain this morning. Discussed with Dr. Ang this morning and from surgical standpoint patient does not need further outpatient follow-up. Physical Exam Const: COMMON NORMALS: no apparent distress and oriented x3 Resp: COMMON NORMALS: normal respiratory effort and clear to auscultation bilaterally AUSCULTATION: clear to auscultation bilaterally Cardio: COMMON NORMALS: regular rate, regular rhythm and S2 normal heart sound RATE: regular rate RHYTHM: regular rhythm HEART SOUNDS: S2 normal OTHER: No lower extremity edema GI: COMMON NORMALS: normal to inspection, nondistended, normoactive bowel sounds, soft to palpation and non-tender PALPATION: Yes soft Neuro: COMMON NORMALS: oriented x3 and no focal motor deficits Discharge Data Data Completed and Pending: Completed Studies During Hospitalization Category Date Time Status CT abdomen pelvis w con* [id number] Urge nt Cat Scan 07/24/19 11:20 Completed XR abdomen min 2V [id number] Urgent Exams 07/25/19 08:07 Completed XR chest 1V bo ble [id number] Urgent Exams 07/24/19 11:20 Completed Pending at discharge Category Date Time Status Complete Blood Co unt w/Auto AM LABS Lab 07/27/19 04:00 Ordered Comprehensive Met abolic Panel AM LA BS Lab 07/27/19 04:00 Ordered Magnesium AM LABS Lab 07/27/19 04:00 Ordered Phosphorus AM LAB S Lab 07/27/19 04:00 Ordered Labs from last 24 hours 07/26/19 07/26/19 05:05 05:05 WBC 9.3 RBC 4.16 Hgb 13.0 Hct 40.4 L MCV 97.1 H MCH 31.3 MCHC 32.2 RDW 13.5 Plt Count 302 MPV 10.4 Neut % (Auto) 70.5 Lymph % (Auto) 14.5 Woodruff % (Auto) 13.0 Eos % (Auto) 1.2 Baso % (Auto) 0.3 Neut # (Auto) 6.6 Lymph # (Auto) 1.4 Woodruff # (Auto) 1.2 H Eos # (Auto) 0.1 Baso # (Auto) 0.0 Nucleated RBC % (a uto) 0 Nucleated RBCs # 0.0 Sodium 140 Potassium 3.7 Chloride 107 Carbon Dioxide 23 Anion Gap 13.7 BUN 8 Creatinine 0.9 GFR Calculation 83.7 L Glucose 105 Calculated Osmolal ity 286 Calcium 9.3 Phosphorus 2.4 L Magnesium 2.2 Total Bilirubin 0.5 AST 15 ALT 11 Alkaline Phosphata se 68 Total Protein 6.9 Albumin 3.8 Globulin 3.1 Vitals: Last Vital Signs Temp 98.1 F 07/26/19 08:00 Pulse 70 07/26/19 08:00 Resp 18 07/26/19 08:00 BP 122/80 07/26/19 08:00 Pulse Ox 96 07/26/19 08:00 Discharge Plan Discharge Patient Disposition: Home, Self-Care Condition: Fair Prescriptions: New docusate sodium 100 mg Capsule 100 mg PO BID Qty: 60 RF: 0 lactulose 20 gram/30 mL Solution 10 g PO DAILY Qty: 1000 RF: 0 sennosides [Senna Lax] 8.6 mg tablet 8.6 mg PO DAILY PRN (Reason: constipation) Qty: 30 RF: 0 Continued multivitamin Tablet 1 tab PO DAILY RF: 0 aspirin 81 mg Tablet,Chewable 81 mg PO DAILY RF: 0 omeprazole 20 mg Tablet,Delayed Release (Dr/Ec) 20 mg PO DAILY RF: 0 coenzyme Q10 100 mg Tablet 100 mg PO DAILY RF: 0 Discharge Orders: Discharge Order (Routine); Ordered 07/26/19 Ordered By: Kar Aguilar Referrals: Iván Horne [Primary Care Provider] - 4-7 days Discharge Diet: Advance as tolerated Discharge Activity: Increase activity as tolerated Activity Restrictions/Additional Instructions: Please call your doctor or present to emergency department if your condition worsens or you develop diarrhea, lightheadedness, fatigue or see blood in your stool or black stool. Please discontinue lactulose if you have diarrhea. Please take senna as needed for constipation but do not take it if you have moderate to severe abdominal pain and in that case please present to emergency department or call your doctor for further evaluation. 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
[2019-07-26 10:52] VITALS: BP 122/80; PULSE 70; RESP 18; TEMP 36.7; O2SAT 96
[2019-07-26 11:35] VITALS: RESP 18; TEMP 36.8; O2SAT 94
== END 2019-07-26 11:42 | disposition home or self-care (01) | DRG 390 ==
LOC: ER 12:52 → MEDSURG 13:11
PROVIDERS: Admitting Provider Internal Medicine; Emergency Provider Family Medicine; Family Provider Internal Medicine; PCP Internal Medicine; Visit Provider Internal Medicine
DX: K56.609 Unspecified intestinal obstruction, unspecified as to partial versus complete obstruction (principal); K21.9 Gastro-esophageal reflux disease without esophagitis; G47.33 Obstructive sleep apnea (adult) (pediatric); Z79.82 Long term (current) use of aspirin; Z87.891 Personal history of nicotine dependence
CPT/HCPCS: 12345; 36415; 71045; 74019; 74177; 80053; 81001; 83605; 83690; 83735; 84100; 85025; 94640; 96372; 96375; 99284; C9113; J1644; J2405; J7030; Q9967

== ENCOUNTER 2019-11-07 10:40 | Outpatient (CLI) | payer OTHER, SELFPAY ==
--- NOTE | 2019-11-07 10:43 | MR_ITS ---
WS: [id number] MRI LUMBAR SPINE NONCONTRAST TECHNIQUE: Sagittal T1, T2 and STIR imaging. Axial T1 and T2 imaging. CLINICAL INFORMATION: BILATERAL NEUROPATHY COMPARISON: None. FINDINGS: Mild lumbar curve. No acute compression. Slight retrolisthesis L2 on L3 and L3 on L4. No high-grade c entral canal stenosis. L1-L2: Normal. L2-L3: Mild annular bulging. Mild facet arthropathy. Mild left and no significant right foraminal amira rowing. Spinal canal is patent. L3-L4: Mild disc bulging with slight narrowing of the right subarticular recess. Slight impingement t raversing right L4 nerve root. Mild left and no significant right foraminal narrowing. Mild facet art hropathy. L4-L5: Right eccentric disc bulging with osteophytic ridging. Slight impingement traversing right L5 nerve root. Mild to moderate right and no significant left foraminal narrowing. Moderate facet arthro xochilt. L5-S1: Mild disc bulging with endplate ridging. Slight effacement of ventral thecal sac. Slight encro achment traversing right S1 nerve root with a tiny annular fissure. Spinal canal and foramen are loredo nt. Mild facet arthropathy. Visualized pelvic bony structures: Normal. Paravertebral soft tissues: Normal. MR/MR lumbar spine wo con* [id number] IMPRESSION: 1. Mild lumbar curve. No acute compression. No high-grade central canal stenos is. 2. Degenerative endplate-type changes at L2-3 with slight retrolisthesis and m ild endplate edema. 3. Right eccentric disc bulging L4-5 impinges the traversing right L5 nerve ro ot in the subarticular recess. Mild to moderate right L4-5 foraminal narrowing. Correlation for right L4 nerve root symptoms. 4. Slight narrowing of the right L3-4 subarticular recess with encroachment tr aversing right L4 nerve root. 5. Mild left L3-L4 foraminal narrowing. 6. Mild facet arthropathy L3-L5.
== END 2019-11-07 10:41 | disposition home or self-care (01) ==
LOC: RADSHAW 10:40
PROVIDERS: Visit Provider Internal Medicine
DX: G62.9 Polyneuropathy, unspecified (principal); M47.816 Spondylosis without myelopathy or radiculopathy, lumbar region; M51.26 Other intervertebral disc displacement, lumbar region
CPT/HCPCS: 72148

== ENCOUNTER → 2020-10-17 08:14 | Outpatient (BNVA) | payer OTHER, SELFPAY | PROVIDERS: Visit Provider Surgery | DX: Z01.812 Encounter for preprocedural laboratory examination (principal); Z20.822 Contact with and (suspected) exposure to COVID-19 | CPT/HCPCS: 87635 ==

== ENCOUNTER 2020-10-23 10:25 | Day surgery (SDC) | payer OTHER, SELFPAY ==
[2020-10-17 12:18] VITALS: BMI 32.5
--- NOTE | 2020-10-23 10:51 | ANES.PREANE2 ---
Pre-Anesthetic Assessment Pre-Anesthetic Assessment: Height/Weight: Height 1.75 m Weight 99.79 kg Proposed Procedure: Operation Date: 10/23/20 12:00 Proposed Procedures p EGD/colon 63382 [id number] Z86.01 K21(Not Applicable) - Florencio Ang MD s Colonoscopy(Not Applicable) - Florencio Ang MD Was Beta Paul taken within 24 hours: N/A Was Clonidine taken within 24 hours: N/A Social: Social History: No alcohol and No tobacco Exam: Pre-Anes Outpt Exam: alert, oriented x 3, clear to auscultation bilaterally and regular rate & rhythm Airway: Submandibular: WNL Cervical ROM: WNL MP: 2 Dentition: False Pulmonary: Pulmonary: Sleep apnea GI: GI: GERD Metabolic: Metabolic: Morbid obesity Anesthetic Plan: ASA status: 2 Anesthesia: MAC Risk of > 500 ml blood loss (7ml/kg in children): No PFSH Anesthesia PFSH: Medical History Chronic GERD History of colon polyps MERY (obstructive sleep apnea) Surgical History H/O vasectomy History of repair of ACL left Status post colonoscopy with polypectomy Family History Denies family history of Diabetes CAD (coronary artery disease) Chronic kidney disease (CKD) Anesthesia complication Bleeding disorder Lung disease Hypertension Social History Smoking and tobacco status: former smoker Quit status (tobacco): quit date established Planned quit date: 05/06/95 Alcohol intake: current Alcohol intake frequency: few times a month Alcohol type: beer Lives independently: Yes Household members: spouse Marital status: Current occupational status: retired History of recent travel: No Data Anesthesia Cardiac Studies: No Data to Display
[2020-10-23 11:10] VITALS: BP 139/78; PULSE 61; RESP 18; TEMP 36.3; O2SAT 94
[2020-10-23] MEDS: sodium chloride 0.9% 1,000 ML 30 ML IV (11:17)
--- NOTE | 2020-10-23 12:16 | W.PM.OPSFHP ---
Same Day Surgery H&P Indication for Procedure/HPI DATE OF PROCEDURE: October 23, 2020 CHIEF COMPLAINT/INDICATIONFOR SURGICAL PROCEDURE: GERD with dysphagia, colon polyps, screening colonoscopy PREOP DIAGNOSIS: upper gi symptoms PLANNED PROCEDRUE: Operation Date: 10/23/20 12:00 Proposed Procedures p EGD/colon 49441 15230 Z86.01 K21(Not Applicable) - Florencio Ang MD s Colonoscopy(Not Applicable) - Florencio Ang MD Medications/Allergies* Home Medications Medication Instructions Recorded Confirmed Type aspirin 81 mg PO DAILY 07/24/19 10/23/20 History coenzyme Q10 100 mg PO DAILY 07/24/19 10/23/20 History multivitamin 1 tab PO DAILY 07/24/19 10/23/20 History omeprazole 20 mg PO DAILY 07/24/19 10/23/20 History docusate sodium [Colace] 100 mg PO BID 10/23/20 10/23/20 History Allergies/Adverse Reactions Allergy/AdvReac Type Severity Reaction Status Date / Time No Known Allergies Allergy Verified 10/23/20 11:03 Current Medications: Generic Name Dose Route Start Last Admin Trade Name Freq PRN Reason Stop Dose Admin Sodium Chloride 1,000 mls @ 30 mls/hr 10/23/20 11:15 10/23/20 11:17 Sodium Chloride 0.9% IV 10/24/20 11:14 30 mls/hr .Q24H JAMIA Administration Pertinent History/Comorbid Conditions* Medical History (Updated 09/16/20 @ 08:30 by Florencio Ang MD) Chronic GERD History of colon polyps MERY (obstructive sleep apnea) Surgical History (Updated 06/02/20 @ 14:06 by Florencio Ang MD) H/O vasectomy History of repair of ACL left Status post colonoscopy with polypectomy Family History (Updated 08/07/19 @ 10:21 by Shea Andrade) Denies family history of Diabetes CAD (coronary artery disease) Chronic kidney disease (CKD) Anesthesia complication Bleeding disorder Lung disease Hypertension Social History Smoking and tobacco status: former smoker Quit status (tobacco): quit date established Planned quit date: 05/06/95 Alcohol intake: current Alcohol intake frequency: few times a month Alcohol type: beer Lives independently: Yes Household members: spouse Marital status: Current occupational status: retired History of recent travel: No Pertinent Exam Findings alert, oriented x 3 and regular rate & rhythm Recommendations Surgery/Procedure today Coding Level of Care 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
[2020-10-23 13:38] VITALS: BP 113/69; PULSE 62; RESP 18; TEMP 36.6; O2SAT 95
[2020-10-23 13:55] VITALS: BP 128/76; PULSE 58; RESP 18; TEMP 36.3; O2SAT 95
--- NOTE | 2020-10-23 14:04 | ANE.PACU2 ---
Inpatient post-anesthesia follow up: Airway intact: Yes Vital signs: Temperature 97.3 F Pulse Rate 58 Respiratory Rate 18 Blood Pressure 128/76 Pulse Oximetry 95 Oxygen Delivery Me thod Room Air Oxygen Flow Rate 3 Fraction of Inspir ed Oxygen Hydration adequate: Yes Nausea and vomiting: No Pain level: 1 Mental status: Baseline
== END 2020-10-23 14:15 | disposition home or self-care (01) ==
PROVIDERS: PCP Family Medicine; Visit Provider Surgery
PROC: 0DJ08ZZ Inspection of Upper Intestinal Tract, Via Natural or Artificial Opening Endoscopic (ICD-10-PCS; CPT 43235; principal; 2020-10-23 12:00)
PROC: 0DJD8ZZ Inspection of Lower Intestinal Tract, Via Natural or Artificial Opening Endoscopic (ICD-10-PCS; CPT 45378; 2020-10-23 12:00)
DX: Z12.11 Encounter for screening for malignant neoplasm of colon (principal); Z86.010 Personal history of colon polyps; R60.9 Edema, unspecified; K57.30 Diverticulosis of large intestine without perforation or abscess without bleeding; K64.8 Other hemorrhoids; Z79.82 Long term (current) use of aspirin; G47.33 Obstructive sleep apnea (adult) (pediatric); Z87.891 Personal history of nicotine dependence; D12.2 Benign neoplasm of ascending colon
CPT/HCPCS: 43249; 45380; 88305; 96360; 96361; J2704; J7030

== ENCOUNTER → 2020-11-21 10:01 | Outpatient (BNVA) | payer OTHER, SELFPAY | PROVIDERS: PCP Family Medicine; Visit Provider Surgery | DX: Z11.52 Encounter for screening for COVID-19 (principal) | CPT/HCPCS: 87635 ==

== ENCOUNTER 2020-11-26 11:35 | Day surgery (SDC) | payer OTHER, SELFPAY ==
[2020-11-25 13:20] VITALS: BMI 32.5
[2020-11-26] VITALS (9 sets, daily range): BP systolic 106–153; BP diastolic 67–87; PULSE 58–90; RESP 14–17; TEMP 36.3–36.6; O2SAT 94–100
[2020-11-26] MEDS: sodium chloride 0.9% 1,000 ML 30 ML IV (12:42)
--- NOTE | 2020-11-26 13:05 | ANES.PREANE2 ---
Pre-Anesthetic Assessment Pre-Anesthetic Assessment: Height/Weight: Height 1.75 m Weight 99.79 kg Temp Pulse Resp BP Pulse Ox 97.9 F 59 L 16 153/85 98 11/26/20 12:20 11/26/20 12:20 11/26/20 12:20 11/26/20 12:20 11/26/20 12:20 Preop Diagnosis: Right inguinal hernia Proposed Procedure: Operation Date: 11/26/20 13:30 Proposed Procedures p LAPAROSCOPIC POSS OPEN RIGHT INGUINAL HERNIA 37834 k40.90(Right) - Florencio Ang MD Familial anesthetic complications: none Was Beta Paul taken within 24 hours: N/A Was Clonidine taken within 24 hours: N/A Last intake: Intake Last Liquid Date 11/26/20 Last Liquid Time 07:00 Last Solid Date 11/25/20 Last Solid Time 17:00 Social: Social History: No alcohol and No tobacco Comment: former smoker Exam: Pre-Anes Outpt Exam: alert, oriented x 3, clear to auscultation bilaterally and regular rate & rhythm Airway: Cervical ROM: WNL MP: 2 Dentition: False Pulmonary: Pulmonary: Sleep apnea CV/HEM: Comments: able to achieve > 4 METS GI: GI: GERD Metabolic: Metabolic: Morbid obesity Anesthetic Plan: ASA status: 3 Anesthesia: General Risk of > 500 ml blood loss (7ml/kg in children): No Meds/Allergies Current Medications: Current Medications Generic Name Dose Route Start Last Admin Trade Name Freq PRN Reason Stop Dose Admin Sodium Chloride 1,000 mls @ 30 ml s/hr 11/26/20 12:00 11/26/20 12:42 Sodium Chloride 0.9% IV 11/27/20 11:59 30 mls/hr .Q24H JAMIA Administration PFSH Anesthesia PFSH: Medical History Chronic GERD Esophageal stricture History of colon polyps MERY (obstructive sleep apnea) Surgical History H/O esophagogastroduodenoscopy (10/23/20) H/O vasectomy History of repair of ACL left Status post colonoscopy with polypectomy (10/23/20) Family History Denies family history of Diabetes CAD (coronary artery disease) Chronic kidney disease (CKD) Anesthesia complication Bleeding disorder Lung disease Hypertension Social History Smoking and tobacco status: former smoker Quit status (tobacco): has quit using tobacco Year quit tobacco: 1995 Former quit date comment: 1-2 PPD FOR 26 YEARS Alcohol intake: current Alcohol intake frequency: few times a month Alcohol type: beer Lives independently: Yes Household members: spouse Marital status: Current occupational status: retired History of recent travel: No Data Anesthesia Cardiac Studies: No Data to Display
--- NOTE | 2020-11-26 13:11 | W.PM.OPSFHP ---
Same Day Surgery H&P Indication for Procedure/HPI DATE OF PROCEDURE: November 26, 2020 CHIEF COMPLAINT/INDICATIONFOR SURGICAL PROCEDURE: right inguinal hernia PREOP DIAGNOSIS: Right inguinal hernia PLANNED PROCEDRUE: Operation Date: 11/26/20 13:30 Proposed Procedures p LAPAROSCOPIC POSS OPEN RIGHT INGUINAL HERNIA 11070 k40.90(Right) - Florencio Ang MD Medications/Allergies* Home Medications Medication Instructions Recorded Confirmed Type aspirin 81 mg PO DAILY 07/24/19 11/26/20 History coenzyme Q10 100 mg PO DAILY 07/24/19 11/26/20 History multivitamin 1 tab PO DAILY 07/24/19 11/26/20 History docusate sodium [Colace] 100 mg PO BID 10/23/20 11/26/20 History omeprazole 40 mg PO DAILY 11/25/20 11/26/20 History psyllium husk [Metamucil] 1 tbsp PO DAILY 11/25/20 11/26/20 History Allergies/Adverse Reactions Allergy/AdvReac Type Severity Reaction Status Date / Time No Known Allergies Allergy Verified 11/25/20 13:22 Current Medications: Generic Name Dose Route Start Last Admin Trade Name Freq PRN Reason Stop Dose Admin Sodium Chloride 1,000 mls @ 30 mls/hr 11/26/20 12:00 11/26/20 12:42 Sodium Chloride 0.9% IV 11/27/20 11:59 30 mls/hr .Q24H JAMIA Administration Pertinent History/Comorbid Conditions* Medical History (Updated 11/06/20 @ 13:22 by Brett Santana MD) Chronic GERD Esophageal stricture History of colon polyps MERY (obstructive sleep apnea) Surgical History (Updated 10/23/20 @ 13:44 by Florencio Ang MD) H/O esophagogastroduodenoscopy (10/23/20) H/O vasectomy History of repair of ACL left Status post colonoscopy with polypectomy (10/23/20) Family History (Updated 08/07/19 @ 10:21 by Shea Andrade) Denies family history of Diabetes CAD (coronary artery disease) Chronic kidney disease (CKD) Anesthesia complication Bleeding disorder Lung disease Hypertension Social History Smoking and tobacco status: former smoker Quit status (tobacco): has quit using tobacco Year quit tobacco: 1995 Former quit date comment: 1-2 PPD FOR 26 YEARS Alcohol intake: current Alcohol intake frequency: few times a month Alcohol type: beer Lives independently: Yes Household members: spouse Marital status: Current occupational status: retired History of recent travel: No Pertinent Exam Findings alert, oriented x 3, regular rate & rhythm and operative site marked Recommendations Surgery/Procedure today 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
[2020-11-26] MEDS: ondansetron 2 mg/ML SDV 2 mL 4 MG IVP (15:07)
[2020-11-26] MEDS: fentaNYL 50 mcg/mL INJ 2mL IVP ×2 (15:07→15:12)
--- NOTE | 2020-11-26 16:09 | PM.OP ---
Operative Report Date of procedure: November 26, 2020 Pre-op Diagnosis: Right inguinal hernia Post-op Diagnosis: Large indirect incarcerated right inguinal hernia Procedure Done: Laparoscopic total extraperitoneal repair of right incarcerated indirect inguinal hernia with Surgimax 3D mesh Pathology: none sent Surgeon: Florencio Ang Anesthesia: General Condition: stable Disposition: PACU Procedure: The patient was taken to the operating room. After IV antibiotic was administered, the abdomen was prepped and draped in a sterile manner. Using a 15 blade, a 1.0 cm transverse incision was made infraumbilically on the right side. Subcutaneous tissue was divided using electrocautery and the anterior rectus sheath divided using an 11 blade. The rectus muscle was retracted laterally and the extraperitoneal space identified. A 11 mm port was placed and 12 mm of pneumoperitoneum was created. A 10 mm 30? scope was introduced and the retrorectus space was opened using the camera up to the pubic symphysis and 5 mm ports were placed in the midline, one 2-fingerbreadths above the pubic symphysis and the other midway between these two ports under direct visualization. Blunt dissection was carried out to open up the tissue in the midline and to the pubic symphysis, which was identified. The dissection was then carried laterally where the iliopubic tract was identified. There was no femoral, obturator or direct hernia noted. The inferior epigastric artery was identified and dissection was carried posterior to it and laterally, the space was opened up to the level of the umbilicus superior to the anterior superior iliac spine. I then proceeded to dissect out the spermatic cord and the large indirect hernial sac was reduced . 15 x 10cm Surgimax 3D mesh was rolled and introduced through the 10 mm port and the rolled laterally and apposed well against the abdominal wall to cover the myopectineal orifice completely. 10 Cc of 0.5% Marcaine was infiltrated into the preperitoneal space. The extraperitoneal space was desufflated under direct visualization to ensure no slippage of hernial sac under the mesh. All ports were removed, the anterior rectus fascia at the infraumbilical port closed using figure of eight 0 Vicryl sutures, subcutaneous tissue approximated using 3-0 Vicryl sutures and skin at all three port sites were closed using running subcuticular 4-0 Monocryl sutures and Dermabond. 10 mL of 0.5% Marcaine was infiltrated at the port sites. The patient was stable throughout the procedure.
--- NOTE | 2020-11-26 16:25 | ANE.PACU2 ---
Inpatient post-anesthesia follow up: Airway intact: Yes Vital signs: Temperature 97.3 F Pulse Rate 58 Respiratory Rate 14 Blood Pressure 106/67 Pulse Oximetry 94 Oxygen Delivery Me thod Room Air Oxygen Flow Rate 8 Fraction of Inspir ed Oxygen Hydration adequate: Yes Nausea and vomiting: No Pain level: 2 Mental status: Baseline
[2020-11-26] MEDS: HYDROcodone-acetaminophen 5-325 mg Tablet 1 TAB PO (17:00)
== END 2020-11-26 17:05 | disposition home or self-care (01) ==
PROVIDERS: PCP Family Medicine; Visit Provider Surgery
PROC: (CPT 49650; principal; 2020-11-26 13:30)
DX: K40.30 Unilateral inguinal hernia, with obstruction, without gangrene, not specified as recurrent (principal); Z87.891 Personal history of nicotine dependence; G47.30 Sleep apnea, unspecified; K21.9 Gastro-esophageal reflux disease without esophagitis; E66.01 Morbid (severe) obesity due to excess calories; Z68.32 Body mass index [BMI] 32.0-32.9, adult; Z86.010 Personal history of colon polyps; Z79.82 Long term (current) use of aspirin
CPT/HCPCS: 49650; 96365; C1781; J0690; J1100; J2405; J2704; J2710; J3010; J3490; J7030

== ENCOUNTER 2021-07-21 06:00 | Outpatient (RCR) | payer OTHER, SELFPAY | END 2021-07-23 23:59 | disposition home or self-care (01) | LOC: SPT 06:00 | PROVIDERS: PCP Family Medicine; Referring Provider Family Medicine; Visit Provider Family Medicine | DX: M25.511 Pain in right shoulder (principal) | CPT/HCPCS: 97110; 97161 ==

== ENCOUNTER 2021-07-24 06:00 | Outpatient (RCR) | payer OTHER, SELFPAY | END 2021-08-22 23:59 | disposition home or self-care (01) | LOC: SPT 06:00 | PROVIDERS: PCP Family Medicine; Referring Provider Family Medicine; Visit Provider Family Medicine | DX: M25.511 Pain in right shoulder (principal) | CPT/HCPCS: 97110 ==

== ENCOUNTER 2021-08-19 12:46 | Outpatient (CLI) | payer OTHER, SELFPAY ==
--- NOTE | 2021-08-19 12:53 | MR_ITS ---
WS: [id number] MRI RIGHT SHOULDER NONCONTRAST TECHNIQUE: Sagittal T2, coronal T1, T2 and proton density imaging. Axial gradient PDE imaging. CLINICAL INFORMATION: R SHOULDER INJURY COMPARISON: MRI 2009 FINDINGS: Mild degenerative arthritis of the AC joint with mild downsloping acromion. Slight subacromial spurri ng. Mild tendinopathy supraspinatus which appears intact. Normal infraspinatus. Normal teres minor. H igh-grade complete tear of the subscapularis tendon with tendon retraction and laxity. Biceps tendon absent from the bicipital groove. This is likely chronically torn. Small amount of subacromial/subdeltoid fluid. Small subcoracoid effusion. Degenerative fraying glenoi d labrum which appears grossly intact. Normal bone marrow signal. MR/MR shoulder RT wo con* [id number] IMPRESSION: 1. Mild degenerative arthritis AC joint with mild downsloping acromion. Slight subacromial spurring. Impingement on the distal supraspinatus with tendinopath y. 2. Complete tear of the distal subscapularis tendon with tendon retraction to the level of the coracoid. This is new from 2009. Atrophy of the subscapularis 3. Biceps tendon is absent from the bicipital groove likely chronically torn. 4. Degenerative fraying of the glenoid labrum.
== END 2021-08-19 12:47 | disposition home or self-care (01) ==
PROVIDERS: PCP Family Medicine; Visit Provider Family Medicine
DX: S46.811A Strain of other muscles, fascia and tendons at shoulder and upper arm level, right arm, initial encounter (principal); X58.XXXA Exposure to other specified factors, initial encounter; M19.011 Primary osteoarthritis, right shoulder
CPT/HCPCS: 73221

== ENCOUNTER → 2021-11-04 09:45 | Outpatient (BNVA) | payer OTHER, SELFPAY | PROVIDERS: PCP Family Medicine; Visit Provider Specialist | DX: M12.811 Other specific arthropathies, not elsewhere classified, right shoulder (principal); M25.511 Pain in right shoulder; M75.101 Unspecified rotator cuff tear or rupture of right shoulder, not specified as traumatic | CPT/HCPCS: 20610; 73030; 99203; 99204; J1100; J2795; J3301 ==

== ENCOUNTER 2022-07-08 11:39 | Emergency (ER) | payer OTHER, SELFPAY ==
[2022-07-08] VITALS (13 sets, daily range): BP systolic 131–144; BP diastolic 72–77; PULSE 48–53; RESP 10–21; TEMP 37.2; O2SAT 94–100; BMI 33.9
--- NOTE | 2022-07-08 11:47 | XRR_ITS ---
PROCEDURE INFORMATION: Exam: XR Chest Exam date and time: 07/08/2022 12:09 PM Age: 72 years old Clinical indication: Shortness of breath; Sternal or substernal pain; Patient HX: Substernal chest pressure. Patient states he had some yesterday while he was out walking his dog. He states that it also started again today. ; Additional info: Chest pain TECHNIQUE: Imaging protocol: Radiologic exam of the chest. Views: 1 view. COMPARISON: CR XR chest 1V portable [id number] 07/24/2019 11:49 AM FINDINGS: Lungs: Lungs are clear. Pleural spaces: There is no pleural effusion or pneumothorax. Heart/Mediastinum: Cardiomediastinal contours are unremarkable. Bones/joints: Bones are unremarkable. XR/XR chest 1V portable [id number] IMPRESSION: No acute findings.
--- NOTE | 2022-07-08 11:47 | ECG_ITS ---
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
--- NOTE | 2022-07-08 12:00 | ED_ITS ---
HPI - Chest Pain General: Chief Complaint: Chest Pain Stated Complaint: CHEST PAIN Time Seen by Provider: 07/08/22 11:47 History of Present Illness: Presents by EMS with complaints of substernal chest pressure. Patient states he had some yesterday while he was out walking his dog. He states that it also started again today. He rates it pressure 3 out of 10, EMS did give him 1 nitro and 4 baby aspirin which lowered the pressure from a 3 to a 1. Patient states he also has had some trouble breathing over the past several years but denies any history of CHF COPD coronary artery disease diabetes. MD complaint: chest heaviness Onset (ago): day(s) (Episodic yesterday and today) Timing of current episode: constant (Improving) Prior episodes: No Onset: during exertion Pain location: substernal Pain radiation: none Severity: mild Quality: heaviness Relieving factors: nitroglycerin Exacerbating factors: nothing Associated symptoms: Reports no associated symptoms; Deny abdominal pain, dyspnea, fever(s), nausea, palpitations or vomiting Treatment prior to arrival: aspirin and nitroglycerin Review of Systems General: Reports: 10 or more systems reviewed and unremarkable except in HPI and below Const: Denies: fever(s), chills or body aches Eyes: Denies: change in vision ENMT: Denies: throat pain or odynophagia Card: Reports: chest pain; Denies: palpitations, irregular heart rhythm or edema Resp: Denies: dyspnea, productive cough or non-productive cough GI: Denies: abdominal pain, nausea, vomiting or diarrhea : Denies: flank pain or difficulty urinating Musc: Denies: neck pain, back pain or extremity pain Skin/Breast: Denies: rash or pruritus Neuro: Denies: headache(s), numbness in extremities or weakness in extremities Psych: Denies: anxiety or depression Endo: Denies: polyuria or polydipsia Braden/Lymph: Denies: easy bruising or easy bleeding All/Imm: Denies: urticaria or throat swelling PFSH ED PFSH: Medical History Chronic GERD Esophageal stricture History of colon polyps MERY (obstructive sleep apnea) Surgical History H/O esophagogastroduodenoscopy (10/23/20) H/O vasectomy History of repair of ACL left Status post colonoscopy with polypectomy (10/23/20) Status post right inguinal hernia repair (11/26/20) Family History Denies family history of Diabetes CAD (coronary artery disease) Chronic kidney disease (CKD) Anesthesia complication Bleeding disorder Lung disease Hypertension Social History Smoking and tobacco status: never smoked Quit status (tobacco): has quit using tobacco Year quit tobacco: 1995 Former quit date comment: 1-2 PPD FOR 26 YEARS Alcohol intake: current Alcohol intake frequency: few times a month Alcohol type: beer Lives independently: Yes Household members: spouse Marital status: Current occupational status: retired Physical Exam Const: COMMON NORMALS: no acute distress, average body habitus, patient oriented x3, no limitations, healthy appearing and alert HENMT: COMMON NORMALS: normocephalic, atraumatic, hearing grossly normal bilaterally and moist oral mucous membranes HEAD & SCALP: normocephalic and atraumatic Neck/C-Spine: COMMON NORMALS: full ROM, no lymphadenopathy, supple, no JVD and Thyroid normal THYROID: Thyroid normal Chest: COMMONS NORMALS: normal inspection of the chest and normal palpation of entire chest wall Resp: COMMON NORMALS: normal respiratory effort, No retractions, No use of accessory muscles and clear to auscultation bilaterally AUSCULTATION: clear to auscultation bilaterally Cardio: COMMON NORMALS: no JVD, regular rate, regular rhythm, S1 normal heart sound present, S2 normal heart sound present, No gallops present (Cardio) and No murmurs present (Cardio) RATE: regular rate RHYTHM: regular rhythm HEA RT SOUNDS: S1 normal heart sound present and S2 normal heart sound present GI: COMMON NORMALS: Normal to inspection, nondistended, normoactive bowel sounds present, Soft to palpation, non-tender, No hepatosplenomegaly present and no masses PALPATION: Yes Soft to palpation and Yes No hepatosplenomegaly pres ent : COMMON NORMALS: Yes no CVA tenderness BLADDER/KIDNEY EXAM: Yes no CVA tenderness Back/Pelvis: COMMON NORMALS: no CVA tenderness Extremity: COMMON NORMALS: normal to inspection Neuro: COMMON NORMALS: patient oriented x3 SENSORIUM/ORIENTATION: Yes alert Course Vital Signs: Vital signs: Vital Signs Temperature 98.9 F 07/08/22 11:46 Pulse Rate 49 L 07/08/22 14:15 Respiratory Rate 19 H 07/08/22 14:15 Blood Pressure 131/76 07/08/22 14:15 Pulse Oximetry 99 07/08/22 14:15 Oxygen Delivery Me thod 07/08/22 12:10 MDM - Chest Pain Medical Decision Making Patient presents to the ER with complaints of intermittent chest p pressure. Patient states this pain was when he was walking his dog. He was given nitro and aspirin and the pain resolved. Patient has been symptom-free during his time here in ER. Upon history and physical exam as well as routine labs EKGs and chest x-ray, it was noted that patient's delta troponin was 0. Patient is on a beta-toi and has had a low heart rate in the upper 40s and lower 50s entire time he has been here. All of this was discussed with patient and in detail who understand his chest pain was more likely than not cardiac in nature. Patient has been instructed to hold his atenolol to see if his heart rate increased but to continue to watch his blood pressure. [facility]. Differential Diagnosis Unlikely acute massive pulmonary embolism, acute respiratory failure, acute myocardial infarction, cardiac arrest or sudden cardiac Medical Records I reviewed the patient's medical records. Lab Data I reviewed the patient's lab results. 07/08/22 12:04 07/08/22 12:04 Radiology Impressions Chest X-Ray 07/08/22 11:47 IMPRESSION: No acute findings. Laboratory Results WBC 6.8 10^3/uL (4.0-10.0) 07/08/22 12:04 RBC 4.38 10^6/uL (4.1-5.3) 07/08/22 12:04 Hgb 13.3 g/dL (11.7-16.6) 07/08/22 12:04 Hct 40.7 % (42.0-52.0) L 07/08/22 12:04 MCV 92.9 fl (80-94) 07/08/22 12:04 MCH 30.4 pg (28.0-34.0) 07/08/22 12:04 MCHC 32.7 g/dL (30.0-36.0) 07/08/22 12:04 RDW 13.0 % (12.1-15.1) 07/08/22 12:04 Plt Count 225 10^3/cmm (130-400) 07/08/22 12:04 MPV 9.6 fL (7.4-10.4) 07/08/22 12:04 Neut % (Auto) 62.1 % 07/08/22 12:04 Lymph % (Auto) 21.6 % 07/08/22 12:04 [place] % (Auto) 12.6 % 07/08/22 12:04 Eos % (Auto) 2.4 % 07/08/22 12:04 Baso % (Auto) 0.9 % 07/08/22 12:04 Neut # (Auto) 4.19 10^3/uL (1.8-7.7) 07/08/22 12:04 Lymph # (Auto) 1.5 10^3/uL (0.8-4.8) 07/08/22 12:04 [place] # (Auto) 0.9 10^3/uL (0.2-0.9) 07/08/22 12:04 Eos # (Auto) 0.2 10^3/uL (0.0-0.8) 07/08/22 12:04 Baso # (Auto) 0.1 10^3/uL (0.0-0.1) 07/08/22 12:04 Nucleated RBC % (auto) 0 % 07/08/22 12:04 Nucleated RBCs # 0.0 /100WBC 07/08/22 12:04 PT 14.10 SECONDS (12.1-14.9) 07/08/22 12:04 INR 1.05 (0.8-1.2) 07/08/22 12:04 Sodium 138 mmol/L (136-145) 07/08/22 12:04 Potassium 4.4 mmol/L (3.5-5.1) 07/08/22 12:04 Chloride 102 mmol/L (98-107) 07/08/22 12:04 Carbon Dioxide 27 mmol/L (22-29) 07/08/22 12:04 Anion Gap 13.4 (5-19) 07/08/22 12:04 BUN 18 mg/dL (8-23) 07/08/22 12:04 Creatinine 1.0 mg/dL (0.7-1.2) 07/08/22 12:04 GFR Calculation Not Reportable 07/08/22 12:04 Glucose 89 mg/dL (65-115) 07/08/22 12:04 Calculated Osmolality 287 mOsm/kg (285-295) 07/08/22 12:04 Calcium 9.1 mg/dL (8.5-10.5) 07/08/22 12:04 Total Bilirubin 0.4 mg/dL (0.15-1.2) 07/08/22 12:04 AST 20 U/L (0-40) 07/08/22 12:04 ALT 15 U/L (0-41) 07/08/22 12:04 Alkaline Phosphatase 67 U/L (40-130) 07/08/22 12:04 Troponin T Baseline 6 ng/L (0-15) 07/08/22 12:04 Troponin T 120 Minute 6.00 ng/L (0-15) 07/08/22 14:04 Delta Troponin T 0 ABS# (0-10) 07/08/22 14:04 NT-Pro-B Natriuret Pep 201 pg/mL (0-125) H 07/08/22 12:04 Total Protein 6.5 g/dL (6.6-8.7) L 07/08/22 12:04 Albumin 4.1 g/dL (3.5-5.2) 07/08/22 12:04 Globulin 2.4 g/dL (1.3-4.6) 07/08/22 12:04 EKG Data EKG 1: I personally reviewed and interpreted this EKG as follows: EKG interpretation date: 07/08/22 EKG interpretation time: 11:54 Prior EKG tracings: not available for review Interpretation: EKG showed sinus bradycardia with a ventricular rate of 46 bpm, ID interval 160, QRS duration 91, QTc 396, no ST-T wave changes EKG 2: I personally reviewed and interpreted this EKG as follows: EKG interpretation date: 07/08/22 EKG interpretation time: 13:53 Prior EKG tracings: available for review Interpretation: EKG showed normal sinus bradycardia with ventricular rate of 46 bpm, ID interval 168, QRS duration of 80, QTc 386, no ST-T wave changes Discharge Plan Discharge Patient Disposition: Home Clinical Impression: Atypical chest pain, Bradycardia, drug induced Condition: Stable Prescriptions: No Action omeprazole 40 mg capsule,delayed release(DR/EC) 40 mg PO DAILY aspirin 81 mg Tablet,Chewable 81 mg PO DAILY coenzyme Q10 100 mg Tablet 100 mg PO DAILY docusate sodium [Colace] 100 mg capsule 100 mg PO DAILY atenolol 25 mg Tablet 12.5 mg PO DAILY meloxicam 7.5 mg Tablet 7.5 mg PO DAILY Paxil 20 mg Tablet 20 mg PO BEDTIME Nitrostat 0.4 mg Tablet, Sublingual 0.4 mg SUBLINGUAL Q5M PRN (Reason: Chest Pain) Rx Instructions: do not exceed 3 doses per episode gabapentin 300 mg Capsule 900 mg PO BEDTIME lisinopril-hydrochlorothiazide 10-12.5 mg Tablet 1 tab PO DAILY dicyclomine 10 mg Capsule 10 mg PO TID simethicone 80 mg Tablet,Chewable 160 mg PO DAILY PRN (Reason: Gastric Reflux) Crestor 20 mg Tablet 10 mg PO BEDTIME duloxetine 60 mg Capsule,Delayed Release(Dr/Ec) 60 mg PO DAILY Lactobacillus acidophilus 1 billion cell Capsule 2,000 mmu cells PO DAILY Discharge Orders: Discharge ED (Routine); Ordered 07/08/22 Ordered By: Monico Alan Referrals: Rina Koch MD [Primary Care Provider] - 1 week Discharge Activity: Increase activity as tolerated Patient Instructions: Chest Pain (ED), Bradycardia (ED) Activity Restrictions/Additional Instructions: Please hold your atenolol as this may be slowing her heart rate down too much. Please keep a blood pressure log as this may also increase her blood pressure. [facility] Coding Level of Care Code ED Rosin Barrel Filler for Johnnie Tomlinson
[2022-07-08 12:10] LABS: Basophils # 0.1 10^3/uL (0.0-0.1); Basophils % 0.9 %; Eosinophils # 0.2 10^3/uL (0.0-0.8); Eosinophils % 2.4 %; Hematocrit 40.7 % (42.0-52.0); Hemoglobin 13.3 g/dL (11.7-16.6); Lymphocytes # 1.5 10^3/uL (0.8-4.8); Lymphocytes % 21.6 %; Mean Corpuscular HGB Conc 32.7 g/dL (30.0-36.0); Mean Corpuscular Hemoglobin 30.4 pg (28.0-34.0); Mean Corpuscular Volume 92.9 fl (80-94); Mean Platelet Volume 9.6 fL (7.4-10.4); Monocytes # 0.9 10^3/uL (0.2-0.9); Monocytes % 12.6 %; Neutrophils # 4.19 10^3/uL (1.8-7.7); Neutrophils % 62.1 %; Nucleated Red Blood Cells % 0 %; Platelet Count 225 10^3/cmm (130-400); Red Blood Count 4.38 10^6/uL (4.1-5.3); White Blood Count 6.8 10^3/uL (4.0-10.0)
[2022-07-08 12:22] LABS: INR 1.05 (0.8-1.2)
[2022-07-08 12:30] LABS: Troponin(5th) Baseline 6 ng/L (0-15)
[2022-07-08 12:50] LABS: Alanine Aminotransferase 15 U/L (0-41); Albumin Level 4.1 g/dL (3.5-5.2); Alkaline Phosphatase 67 U/L (40-130); Anion Gap 13.4 (5-19); Aspartate Amino Transferase 20 U/L (0-40); Blood Urea Nitrogen 18 mg/dL (8-23); Calcium 9.1 mg/dL (8.5-10.5); Carbon Dioxide 27 mmol/L (22-29); Chloride 102 mmol/L (98-107); Globulin 2.4 g/dL (1.3-4.6); Glucose 89 mg/dL (65-115); NT Pro B Type Natriuretic Pept 201 pg/mL (0-125); Osmolality Calculated 287 mOsm/kg (285-295); Potassium 4.4 mmol/L (3.5-5.1); Sodium 138 mmol/L (136-145); Total Bilirubin 0.4 mg/dL (0.15-1.2); Total Protein 6.5 g/dL (6.6-8.7)
--- NOTE | 2022-07-08 13:47 | ECG_ITS ---
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
[2022-07-08 14:33] LABS: Troponin 5 2HR Delta 0 ABS# (0-10)
== END 2022-07-08 15:23 | disposition home or self-care (01) ==
PROVIDERS: Emergency Provider Emergency Medicine; PCP Family Medicine
DX: R07.89 Other chest pain (principal); R00.1 Bradycardia, unspecified; T50.905A Adverse effect of unspecified drugs, medicaments and biological substances, initial encounter; Z79.82 Long term (current) use of aspirin; Z87.891 Personal history of nicotine dependence
CPT/HCPCS: 36415; 71045; 80053; 83880; 84484; 85025; 85610; 93005; 99285

== ENCOUNTER → 2022-09-22 08:26 | Outpatient (BNVA) | payer OTHER, SELFPAY | PROVIDERS: PCP Family Medicine; Referring Provider Family Medicine; Visit Provider Specialist | DX: G43.711 Chronic migraine without aura, intractable, with status migrainosus (principal); S06.30AS Unspecified focal traumatic brain injury with loss of consciousness status unknown, sequela; V48 Car occupant injured in noncollision transport accident; K59.00 Constipation, unspecified | CPT/HCPCS: 99205 ==

== ENCOUNTER → 2022-12-13 12:30 | Outpatient (BNVA) | payer OTHER, SELFPAY | PROVIDERS: PCP Family Medicine; Visit Provider Specialist | DX: G43.711 Chronic migraine without aura, intractable, with status migrainosus (principal) | CPT/HCPCS: 99214 ==

== ENCOUNTER 2023-02-24 14:14 | Outpatient (CLI) | payer OTHER, SELFPAY ==
--- NOTE | 2023-02-24 | MR_ITS ---
WS: [id number] MRI RIGHT SHOULDER HISTORY: RT SHOULDER PAIN COMPARISON: 08/19/2021 TECHNIQUE: Multiplanar sequences of the shoulder joint are submitted. Quality of this examination is compromised by significant artifact on all sequences. Moderate degenerative osteoarthritis at the AC joint. Narrowing of the joint space. Osteophyte from t he medial acromion with mild encroachment upon the supraspinatus tendon. There is only mild subacromi al impingement of the distal acromion. Mild progression of the AC joint arthritis. Improved subacromi al and subdeltoid bursal fluid since 08/19/2021. No os acromion. Biceps tendon is not dimly visualized in the bicipital groove as before. Dislocated and/or chronically torn. Similar to the prior study. Mild atrophy of the subscapularis muscle which is similar to the prior study. The remaining muscles a re normal size. Mild tendinopathy in the distal supraspinatus tendon. There is no full-thickness tear . The increased T2 signal in the distal tendon has improved since the prior exam. The subscapularis t endon is not identified and is probably torn and retracted. There is severe narrowing of the coracohu meral interval. Infraspinatus tendon appears normal. Degenerative changes at the labrum but no tears are identified. IMPRESSION: 1. Subscapularis tendon is not identified. Tendon appears to be torn and retracted. Marked narrowing of the coracohumeral interval. 2. Biceps tendon not identified in the bicipital groove. Similar to the prior study. Suspect torn and retracted or subluxed. 3. Moderate AC joint arthritis with mild progression since the prior study. 4. Labrum is not well visualized due to the amount of motion. 5. Mild tendinopathy distal supraspinatus tendon which has improved.
== END 2023-02-24 14:15 | disposition home or self-care (01) ==
LOC: RAD 14:15
PROVIDERS: PCP Family Medicine; Visit Provider Family Medicine
DX: M19.011 Primary osteoarthritis, right shoulder (principal); M67.911 Unspecified disorder of synovium and tendon, right shoulder
CPT/HCPCS: 73221

== ENCOUNTER → 2023-03-15 13:00 | Outpatient (BNVA) | payer OTHER, SELFPAY | PROVIDERS: PCP Family Medicine; Visit Provider Specialist | DX: G43.711 Chronic migraine without aura, intractable, with status migrainosus (principal) | CPT/HCPCS: 99213 ==

== ENCOUNTER → 2023-05-18 11:01 | Outpatient (BNVA) | payer OTHER, SELFPAY | PROVIDERS: PCP Family Medicine; Visit Provider Specialist | DX: M12.811 Other specific arthropathies, not elsewhere classified, right shoulder (principal); M75.111 Incomplete rotator cuff tear or rupture of right shoulder, not specified as traumatic | CPT/HCPCS: 73030; 99213 ==

== ENCOUNTER → 2023-06-03 14:22 | Outpatient (BNVA) | payer OTHER, SELFPAY | PROVIDERS: PCP Family Medicine; Visit Provider Specialist | DX: G43.711 Chronic migraine without aura, intractable, with status migrainosus (principal) | CPT/HCPCS: 99213 ==

== ENCOUNTER 2023-07-13 09:22 | Outpatient (CLI) | payer OTHER, SELFPAY ==
[2023-07-13 10:05] VITALS: BMI 32.3
--- NOTE | 2023-07-13 10:09 | ECG_ITS ---
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 Interpretive Statements NAME OF STUDY: LEXISCAN SESTAMIBI STRESS TEST INDICATION: BRADYCARDIA, PROCEDURE: At the baseline, the EKG revealed sinus bradycardia with a heart rate of 50 bpm. Some early repolarization changes in the inferolateral leads. The baseline heart was 50 bpm with a blood pressue of 129/85 mm of Hg Lexiscan was infused over a period of 20 seconds. A total of 0.4 milligrams of Lexiscan was infused. The stress phase was continued for a total of 5 minutes. Heart rate at the end of the stress phase was 67 bpm with a blood pressure 116/72 mm of Hg. The EKG at the peak infusion revealed no significant changes. Sestamibi was injected 20 seconds after the Lexiscan infusion. Heart rate at the end of the recovery phase was 65 bpm with a blood pressure of 131/81 mm of Hg. CONCLUSION: 1. No significant EKG changes with the LexiScan infusion 2. No LexiScan induced chest pain or cardiac arrhythmia 3. Normal blood pressure and heart rate response 4. Sestamibi/sestamibi perfusion scan pending; see separate report. Electronically Signed On 07-17-2023 20:06:22 CDT by Nela Henson M.D. [id number]
--- NOTE | 2023-07-13 10:09 | NMCV_ITS ---
NM brynn perf SPECT r/s* [id number] Sharif Livingston Age: 73 Gender: M : 1950 Exam Date: 07/13/2023 10:35 Ordering Phys: Rina Koch MD Technologist: KARLEY Mitchell Exam Location: [facility] Indications: BRADYCARDIA, SHORTNESS OF BREATH STRESS TEST Please see separate stress test report in [facility] for full findings IMAGE PROTOCOL Rest/Stress 1 Lexiscan Day Radiopharmaceutical Dose (mCi) Administration Site Administered by Rest: Tc-99m 10.7 IV KARLEY Shoemaker Sestamibi Stress:Tc-99m 32.9 IV KARLEY Mitchell Sestamiashley Rest: 07/13/2023 60 Discovery 630 Stress: 07/13/2023 30 Discovery 630 0.4mg Lexiscan. Images obtained in supine and prone position. SPECT RESULTS Technical Quality: Excellent Raw Data Analysis: Normal Image Corrections: No attenuation or motion correction applied Summed Stress Score: 3 Summed Rest Score: 0 Summed Difference Score: 3 PERFUSION FINDINGS Small to moderate area of slightly decreased tracer uptake was noted in the mid inferolateral, apical inferior and LV apex. Significant reversibility was noted with the supine imaging. However with the prone imaging, however with the prone imaging, there is no significant reversible defects FUNCTIONAL RESULTS (calculated via Gated SPECT) Stress Image LV EF (%): 66 Stress EDV (mL):82 TID: 0.84 Stress ESV (mL):28 FUNCTIONAL FINDINGS: Segmental wall motion analysis revealing no gross wall motion abnormalities IMPRESSIONS 1. Myocardial perfusion imaging revealing small to moderate area of reversible defect in the inferolateral region suggestive of ischemia in the distribution of the right coronary artery/circumflex artery. However because of the inconsistency, most likely it is artifactual. 2. Normal LV ejection fraction 66% 3. LV wall motion analysis revealing no gross wall motion abnormalities. 4. Normal LV volume No similar previous studies are available for comparison Dr Nela Henson MD FAC (Electronically Signed) Final Date: 13 July 2023 13:28 S
[2023-07-13] MEDS: regadenoson 0.4 Mg/5 ml Syringe 0.400000000000000022 MG IVP (11:16)
[2023-07-13 12:05] VITALS: BP 131/81; PULSE 66
== END 2023-07-13 09:23 | disposition home or self-care (01) ==
PROVIDERS: PCP Family Medicine; Visit Provider Family Medicine
DX: R00.1 Bradycardia, unspecified (principal); R06.02 Shortness of breath
CPT/HCPCS: 36415; 78452; 93017; 96374; A9500; J2785

== ENCOUNTER 2023-08-22 20:00 | Outpatient (CLI) | payer OTHER, SELFPAY | END 2023-08-22 20:01 | disposition home or self-care (01) | LOC: SLEEP 08-23 05:46 | PROVIDERS: PCP Family Medicine; Visit Provider Family Medicine | DX: G47.33 Obstructive sleep apnea (adult) (pediatric) (principal) | CPT/HCPCS: 95811 ==

== ENCOUNTER → 2023-08-23 13:48 | Outpatient (BNVA) | payer OTHER, SELFPAY | PROVIDERS: PCP Family Medicine; Visit Provider Specialist | DX: M75.111 Incomplete rotator cuff tear or rupture of right shoulder, not specified as traumatic (principal); M12.811 Other specific arthropathies, not elsewhere classified, right shoulder; G43.711 Chronic migraine without aura, intractable, with status migrainosus; G24.3 Spasmodic torticollis | CPT/HCPCS: 20550; 99214; J1010; J3490 ==

== ENCOUNTER → 2023-12-06 12:39 | Outpatient (BNVA) | payer OTHER, SELFPAY | PROVIDERS: PCP Family Medicine; Visit Provider Specialist | DX: G24.3 Spasmodic torticollis (principal); M54.2 Cervicalgia; G43.711 Chronic migraine without aura, intractable, with status migrainosus | CPT/HCPCS: 99214 ==

== ENCOUNTER 2024-01-04 08:38 | Outpatient (CLI) | payer OTHER, SELFPAY ==
--- NOTE | 2024-01-04 08:46 | MR_ITS ---
WS: [id number] MRI CERVICAL SPINE NONCONTRAST HISTORY: SPASMODIC TORTICOLLIS COMPARISON: 07/12/2018 Technique: Multiplanar, multisequence noncontrast imaging of the cervical spine. Straightening of the normal cervical lordosis. Moderate degenerative disc space narrowing at C3-4 thr ough C6-7. No fractures or vertebral body edema. Moderate edema within the LEFT C2 and C3 articular facets. There is fluid in the C2-3 facet joint. Sm aller amount of edema within the posterior elements of the LEFT C5 and C6 vertebral body. Signal within the cervical cord is normal. Visualized posterior fossa is unremarkable. Craniocervical junction, C1 and C2 relationship, odontoid process and soft tissues are normal. C2-C3: Normal. C3-C4: Annular disc bulging and osteophytic ridging. Mild effacement of ventral CSF. Mild central and bilateral foraminal stenosis. Mild facet joint arthritis on the LEFT. C4-C5: Mild osteophytic ridging with small bilateral foraminal disc osteophyte complexes. Mild bilate ral foraminal stenosis. C5-C6: Mild osteophytic ridging. No stenosis. C6-C7: Mild osteophytic ridging with mild foraminal narrowing. C7-T1: No stenosis. Paraspinal soft tissue are normal. MR/MR cervical spin wo con* [id number] IMPRESSION: 1. Moderate marrow edema and facet joint synovitis LEFT C2-C3. 2. Mild edema articular facets LEFT C5 and C6. 3. Slight reversal of normal cervical lordosis with degenerative disc disease most significant at C3-4. 4. Mild central and bilateral foraminal stenosis at C3-4. 5. Bilateral foraminal narrowing at C4-5 and C6-7.
== END 2024-01-04 08:39 | disposition home or self-care (01) ==
LOC: RAD 08:38
PROVIDERS: PCP Family Medicine; Visit Provider Specialist
DX: M65.88 Other synovitis and tenosynovitis, other site (principal); M50.31 Other cervical disc degeneration, high cervical region; M48.02 Spinal stenosis, cervical region
CPT/HCPCS: 72141

== ENCOUNTER → 2024-03-07 15:07 | Outpatient (BNVA) | payer OTHER, SELFPAY | PROVIDERS: PCP Family Medicine; Visit Provider Specialist | DX: G24.3 Spasmodic torticollis (principal); M54.2 Cervicalgia; G43.711 Chronic migraine without aura, intractable, with status migrainosus | CPT/HCPCS: 99212; 99213 ==

== ENCOUNTER → 2024-03-16 14:47 | Outpatient (BNVA) | payer OTHER, SELFPAY | PROVIDERS: PCP Family Medicine; Visit Provider Specialist | DX: G24.3 Spasmodic torticollis (principal); R03.0 Elevated blood-pressure reading, without diagnosis of hypertension; G43.711 Chronic migraine without aura, intractable, with status migrainosus; M54.2 Cervicalgia | CPT/HCPCS: 64616; J0585 ==

== ENCOUNTER → 2024-05-28 13:54 | Outpatient (BNVA) | payer OTHER, SELFPAY | PROVIDERS: PCP Family Medicine; Visit Provider Internal Medicine | DX: R07.9 Chest pain, unspecified (principal); R00.1 Bradycardia, unspecified; R94.39 Abnormal result of other cardiovascular function study; G47.33 Obstructive sleep apnea (adult) (pediatric); Z87.891 Personal history of nicotine dependence | CPT/HCPCS: 99205 ==

== ENCOUNTER 2024-05-31 10:17 | Outpatient (CLI) | payer OTHER, SELFPAY ==
[2024-05-31 10:37] LABS: Basophils # 0.1 10^3/uL (0.0-0.1); Basophils % 0.9 %; Eosinophils # 0.2 10^3/uL (0.0-0.8); Eosinophils % 2.9 %; Hematocrit 38.3 % (37-53); Lymphocytes # 1.2 10^3/uL (0.8-4.8); Lymphocytes % 22.2 %; Mean Corpuscular HGB Conc 33.7 g/dL (30-55); Mean Corpuscular Hemoglobin 31.5 pg (27-33); Mean Corpuscular Volume 93.4 fl (82-101); Mean Platelet Volume 9.2 fL (7.4-10.4); Monocytes # 0.9 10^3/uL (0.2-0.9); Monocytes % 15.8 %; Neutrophils # 3.15 10^3/uL (1.8-7.7); Neutrophils % 57.5 %; Nucleated Red Blood Cells % 0 %; Platelet Count 244 10^3/cmm (157-399); Red Cell Distribution Width 13.2 % (12.1-15.1); White Blood Count 5.49 10^3/uL (3.29-11.43)
[2024-05-31 11:07] LABS: Anion Gap 13.5 (5-19); Blood Urea Nitrogen 18 mg/dL (8-23); Calcium 9.3 mg/dL (8.5-10.5); Carbon Dioxide 28 mmol/L (22-29); Chloride 97 mmol/L (98-107); Glucose 99 mg/dL (65-115); Osmolality Calculated 280 mOsm/kg (285-295); Potassium 4.5 mmol/L (3.5-5.1); Sodium 134 mmol/L (136-145)
== END 2024-05-31 10:18 | disposition home or self-care (01) ==
LOC: LAB 10:18
PROVIDERS: PCP Family Medicine; Visit Provider Internal Medicine
DX: R94.39 Abnormal result of other cardiovascular function study (principal)
CPT/HCPCS: 36415; 80048; 85025

== ENCOUNTER 2024-06-01 07:03 | Outpatient (CLI) | payer OTHER, SELFPAY ==
[2024-06-01] VITALS (16 sets, daily range): BP systolic 95–143; BP diastolic 62–95; PULSE 52–85; RESP 12–27; TEMP 36.3–36.9; O2SAT 92–98
--- NOTE | 2024-06-01 07:30 | XACV_ITS ---
Ht: 173 cm Wt: 106 kg BSA: 2.30 m2 Gender: Male : 1950 Any Known Allergies: No known allergies Exam Priority: Routine Procedure(s): Procedure Description: Diagnostic procedure Procedure Description: PCI procedure Procedure Description: Drug Eluting Coronary Stent Procedure Description: PTCA Procedure Description: Miscellaneous Procedure Description: ACT Procedure Description: Coronary Angiography Procedure Description: Pressure Wire Diagnostic Cath Status: Elective Diagnostic Findings * INDICATION: CCS 3 Angina/ abnormal stress test. * Left Main has no significant disease. * Circumflex has no significant disease. * Right Coronary Artery has mild luminal irregularities. * Proximal Left Anterior Descending: obstructive 60-70% stenosis, HAYLIE: 3 flow. * Coronary angiography shows right dominance. PCI Status: Elective Interventional Findings * Procedure detail: We engaged left main artery with XB 3.0 guide catheter. IV heparin was administered to maintain anticoagulation. IFR wire after normalization was advanced into distal vessel. iFR value of 0.89 was obtained that was significant. We proceeded with predilation of proximal LAD lesion with 3.5 x 15 mm semicompliant balloon. This was followed by placement of 4.0 x 22 mm resolute [place] drug-eluting stent. We postdilated the stent with a 4.5 x 12 mm NC balloon. At this time final angiogram was performed that showed excellent stent expansion, no residual stenosis and HAYLIE-3 flow. Guidewire and guide catheter were removed. Patient left the Email Producer in stable condition. * Proximal Left Anterior Descendin% stenosis treated with a AB TREK 3.50X15 RX BALLOON, MDT R CLAYTON 4.0X22 MEG, and MDT BRITTANY EUPHORA RX [id number] BALLOON. 0% residual stenosis, HAYLIE: 3 flow. Conclusions 1. Severe proximal LAD stenosis confirmed with IFR value of 0.89. Status post successful revascularization with 1 stent.. 2. Proximal Left Anterior Descending was treated with a Balloon, Drug Eluting Stent, and Balloon. Recommendations * Dual antiplatelet therapy with aspirin and Plavix for at least 1 year. * High intensity statin therapy. * Patient cardiology follow-up in 2 weeks. Interventional RX Recommendation: PCI w/o planned CABG Diagnostic RX Recommendation: PCI w/o planned CABG Anticoagulation: Heparin Pressures Phase:Rest AO : 108 / 74 ( 85 ) @ 9:25:00 AM Clinical Evaluation EBL: 5mL-10mL Procedural Details Procedure Consent Obtained. Pre-Procedure Time Out. Identified patient by full name and date of as verbalized by the patient/guarantor. Does the consent match the physician's order: Yes. Accurate & Complete Informed Consent: Yes. Inpatient/Outpatient History & Physical on Chart: Yes. If H&P is completed, is and addenduem needed: No; If yes, is the addendum complete: N/A. Visualize and Verify Site with Patient/Guarantor: N/A. Relevant Radiology Images available: N/A. Pre-op teaching completed and patient verbalized understanding. The risks, benefits, and alternatives of sedation and/or procedure were discussed by physician. The patient agrees to continue. Procedure started. PERRLA. Strong, equal hand network operations project manager bilaterally. Lungs clear x 5 lobes. IV Site on Arrival: 20 gauge in the right anticubital. IV Fluids: 0.9% NaCl at KVO. 0 mL infused prior to labor union business representative. Pre Procedural Pulses: bilateral dorsalis pedis was 2+. Pre Procedural Pulses: bilateral posterior tibial was 2+. Pre Procedural Pulses: bilateral radial was 2+. Oxygen started at 2liters/min via nasal canula. [facility] Clinical Fraility Score: 3: Managing Well. Email Producer Indications: Other abnormal stress test. Chest Pain Symptom Assessment: Typical Angina Symptoms. Cardiovascular Instability: No. Correct patient, site and procedure confirmed by cath team. right radial was prepped with chloroprep then draped in the usual sterile fashion. right groin was prepped with chloroprep then draped in the usual sterile fashion. Baseline sample Acquired. HR: 55 BPM. Physician arrived. Equipment: 6F - Radial. Cardiac Cath Pack. ACIST Manifold Kit Model BT 2000. Heparinized Saline (2 units/mL), 1000 mL bag. Physician scrubbed in. Immediate Pre-Procedure Time Out. Correct Patient: Yes; Correct Procedure: Yes; Correct Site: Yes; Correct Patient Position: Yes; Correct Supplies: Yes; Dried Flammable Prep: Yes; Blood Products Available: N/A;. Lidocaine 1% infiltrated to the right radial. Arterial access obtained. A 5 cay[place] islander TIG catheter in over wire. Multiple views taken of left coronary artery. Catheter redirected to the RCA. Multiple views taken of right coronary artery. Inventory is 6f XB 3. 6 cay[place] islander XB 3 guide catheter was inserted over the wire. IFR guidewire was advanced through the guide catheter to lesion in the prox LAD. IFR measurement taken. Runthrough guidewire was advanced through the guide catheter to lesion in the prox LAD. IFR wire out. Inflation number : 1 A AB TREK 3.50X15 RX BALLOON was prepped and advanced across the Prox LAD , then inflated to 8 TOÑO for 0:15 seconds. Inflation number: 2 The AB TREK 3.50X15 RX BALLOON was reinflated across the Prox LAD, to 8 TOÑO for 0:07 seconds. Inflation Number : 3 A MDT R CLAYTON 4.0X22 MEG -Lot Number# [id number] exp date 03/09/2027 was prepped and advanced across the Prox LAD. The stent was deployed at 12 TOÑO for 0:18 seconds. Stent balloon out over wire. Results checked. 250 ml bolus complete. Inflation number : 4 A MDT NC EUPHORA RX [id number] BALLOON was prepped and advanced across the Prox LAD , then inflated to 9 TOÑO for 0:17 seconds. Inflation number: 5 The MDT NC EUPHORA RX [id number] BALLOON was reinflated across the Prox LAD, to 9 TOÑO for 0:11 seconds. Balloon out. Results checked. Wire out. Runthrough guidewire was advanced through the guide catheter to lesion in the prox LAD. Wire out. ACT drawn. Results out of range high seconds. Therapeutic limits - pre-heparin administration 90-150 seconds and monitoring heparin during a vascular procedure >250 seconds. Guide catheter out. Physician scrubbed out. A TR Band was successful obtaining hemostatsis at the Right Radial artery insertion site. TR band placed. Hemostasis obtained. Post Procedure: Pulses reassessed and unchanged. PERRLA. Strong, equal hand network operations project manager bilaterally. No VTE prophylaxis required. Contrast type used: Visipaque 320 mgI/mL, 500 mL bottle. Post-op diagnosis: severe prox LAD stenosis, post PCI 1 stent to PROX LAD. Complications: none. Medication's Wasted: Nitro = 49.7 mg. Medication's Wasted: Other = versed 1 mg. Medication's Wasted: Other = fentanyl 50 mcg. Estimated blood loss: 5mL-10mL. Responsiveness - Normal response to verbal stimuli; alert and oriented, PERRLA. Airway - Unaffected, no intervention required; spontaneous ventilation. Medication's Wasted: Heparin = 4000 units. Total IV fluids: 450 mL. Medication's Wasted: Lidocaine 1% = 18 mL. Circulation: W/N/L, pulses unchanged. Nausea/Vomiting: No. Procedure completed. Patient transferred by stretcher to CPRU. Vital chart was stopped. Access Site Site: Right Radial artery Sheath Size: 6 Fr Hemostasis Method: TR Band Hemostasis Success: Successful Procedure Medications Start: 9:21 AM Stop: 9:21 AM Medication: Versed Amount: 1 mg Route: I.V. Start: 9:21 AM Stop: 9:21 AM Medication: Fentanyl Amount: 50 mcg Route: I.V. Start: 9:22 AM Stop: 9:22 AM Medication: Nitrogylcerin Amount: 200 mcg Route: I.A. Start: 9:25 AM Stop: 9:25 AM Medication: Heparin Amount: 5000 units Route: I.V. Start: 9:32 AM Stop: 9:32 AM Medication: Heparin Amount: 4000 units Route: I.V. Start: 9:33 AM Stop: 9:33 AM Medication: 0.9% Saline Amount: 250 ml Route: I.V. bolus Start: 9:38 AM Stop: 9:38 AM Medication: Heparin Amount: 1000 units Route: I.V. Start: 9:53 AM Stop: 9:53 AM Medication: Nitrogylcerin Amount: 100 mcg Route: I.C. Start: 9:53 AM Stop: 9:53 AM Medication: 0.9% Saline Amount: 250 ml Route: I.V. bolus Start: 10:05 AM Stop: 10:05 AM Medication: Plavix Amount: 600 mg Route: P.O. Start: 10:10 AM Stop: 10:10 AM Medication: Nitrogylcerin Amount: 1 Sprays Route: I.C. I, the attending physician, have reviewed and verified all procedure medications. Yes, all medications given per verbal order History/Risk Factors Hypertension: Yes Dyslipidemia: Yes Peripheral Arterial Disease (PAD): No Myocardial Infarction ([place]): No Obesity: Yes Renal Disease: No Tobacco Use: Former Prior Interventions PCI: No CABG: No Valve Surgery: No Report Signatures Finalized by Charan Solano MD on 06/02/2024 08:19 AM
[2024-06-01] MEDS: diphenhydrAMINE 50 mg Capsule PO (07:45)
--- NOTE | 2024-06-01 09:08 | W.PM.OPSUD ---
Surgery/Procedure H&P Update DATE OF PROCEDURE: June 01, 2024 DATE H&P PERFORMED: 05/28/24 H&P UPDATE INFORMATION: I have reviewed H&P completed within last 30 days, I have examined patient prior to procedure and No changes to prior documentation PREOP DIAGNOSIS: CCS Class 2/3 angina- Abrnormal stress test PRIMARY INDICATION FOR PROCEDURE: CCS Class 2/3 angina- Abrnormal stress test PLANNED PROCEDURE: Operation Date: 06/01/24 08:30 Proposed Procedures p Cardiac Catheterization(Left) - Charan Solano M.D Possible percutaneous coronary intervention PATIENT REASSESSED PRIOR TO SEDATION, WITH NO CHANGE NOTED: Yes PHYSICAL EXAM: alert, oriented x 3, clear to auscultation bilaterally and regular rate & rhythm AIRWAY EVAL/ANESTHESIA PLAN: normal airway, ASA III, Local Anesthesia, Risks, benefits & alternatives of sedation and/or procedure discussed and Patient agrees to continue as planned ADDITIONAL INFORMATION: Moderate sedation
--- NOTE | 2024-06-01 10:00 | P.PCN_ITS ---
Procedure Note: Date of procedure: 06/01/24 Pre-procedure diagnosis: CCS 2- 3 angina/abnormal stress test Post-procedure diagnosis: other (Severe proximal LAD stenosis confirmed with iFR. s/p pci with 1 stent) Procedure: Left heart cath with PCI: Proximal LAD has 60-70% stenosis status post PCI with 1 stent. Left circumflex artery and RCA are patent. Aspirin and plavix for atleast 1 year High intensity statin therapy Outpatient cardiology follow up in 2 weeks Estimated blood loss (mL): 10 Complications: None Condition: stable Disposition: floor Coding Level of Care Code Acute Code for Johnnie Tomlinson
--- NOTE | 2024-06-01 10:15 | SUR.PHASEI ---
Received the patient back from the shellfish processing laborer via cot s/p PCI of the Proximal LAD. A & 0 x 3. pigment grinder placed and vital signs obtained. TR band intact to the right wrist. No bleeding or hematoma noted. Palpable radial pulse. Dr. Solano at beside. Orders received to start the patient on a Notroglycerin drip at 5mcg/min for continued left arm pain. See MAR for administration time. No other assessment changes from pre cath assessment. Will transfer to room when one becomes available. Family at bedside. No concerns voiced at this time.
--- NOTE | 2024-06-01 10:26 | ECG_ITS ---
[facility] 2024[facility] Pat Name: Sharif Livingston Department: Room: Gender: Male Show Girl: : 1950 Requested By: Charan Solano Order Number: [id number] Megan MD: CAROLINA HARRY Measurements Intervals [place] Rate: 55 P: 30 MN: 160 QRS: 73 QRSD: 72 T: 71 QT: 414 QTc: 399 Interpretive Statements SINUS BRADYCARDIA WITH SINUS ARRHYTHMIA LOW QRS VOLTAGE IN PRECORDIAL LEADS [QRS DEFLECTION < 1.0 mV IN CHEST LEADS] Early repolarization abnormality INTERPRETATION BASED ON A DEFAULT AGE OF 40 YEARS Compared to ECG 07/08/2022 13:53:25 Low QRS voltage now present Electronically Signed On 06-03-2024 21:13:14 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
[2024-06-01] MEDS: nitroglycerin drip 50 MG/250 ML PREMIX IV (10:45)
--- NOTE | 2024-06-01 11:15 | SUR.PHASEI ---
Nitro drip has been infusing at 5mcg/min since 1044 and the patient is now free of pain. He has no compliants voiced at this time. Will continue to monitor.
--- NOTE | 2024-06-01 11:28 | SUR.PHASEI ---
Letting the air out of the TR band per protocol.
--- NOTE | 2024-06-01 13:01 | SUR.PHASEI ---
TR band off. No bleeding or hematoma noted. Site cleansed with warm water and patted dry. A large band aid was applied to the site and loosely secured with coban. Patient tolerated well.
--- NOTE | 2024-06-01 14:58 | SUR.PHASEI ---
Patient transferred via wheelchair to [facility] with all belongings. Report was called to EZRA Jordan at [phone].
[2024-06-01] MEDS: sodium chloride 0.9% 1,000 ML 100 ML IV (16:40)
[2024-06-01] MEDS: acetaminophen 325 mg Tablet 650 MG PO (21:56)
[2024-06-01] MEDS: gabapentin 300 mg Capsule 900 MG PO (22:50)
[2024-06-02] VITALS: BP 129/80; PULSE 82; RESP 20; O2SAT 93
--- NOTE | 2024-06-02 00:13 | XRR_ITS ---
PROCEDURE INFORMATION: Exam: XR Chest Exam date and time: 06/02/2024 12:24 AM Age: 74 years old Clinical indication: C/O wheezing. Wearing external heart monitor on anterior chest. ; Additional info: Wheeze TECHNIQUE: Imaging protocol: Radiologic exam of the chest. Views: 1 view. COMPARISON: CR XR chest 1V portable [id number] 07/08/2022 12:09 PM FINDINGS: Tubes, catheters and devices: External electronic device overlies the mediastinum. Lungs: Unremarkable. No consolidation. Pleural spaces: Unremarkable. No pleural effusion. No pneumothorax. Heart/Mediastinum: Unremarkable. No cardiomegaly. Bones/joints: Unremarkable. XR/XR chest 1V portable [id number] IMPRESSION: No acute abnormality.
[2024-06-02 00:30] VITALS: BP 117/58; PULSE 73; RESP 14; O2SAT 95
[2024-06-02 04:58] LABS: Anion Gap 15.1 (5-19); Blood Urea Nitrogen 15 mg/dL (8-23); Calcium 9.1 mg/dL (8.5-10.5); Carbon Dioxide 26 mmol/L (22-29); Chloride 100 mmol/L (98-107); Glucose 86 mg/dL (65-115); Osmolality Calculated 284 mOsm/kg (285-295); Potassium 4.1 mmol/L (3.5-5.1); Sodium 137 mmol/L (136-145)
[2024-06-02] MEDS: acetaminophen 325 mg Tablet 650 MG PO (05:40)
[2024-06-02 06:13] VITALS: BP 125/68; PULSE 72; RESP 22; TEMP 36.9; O2SAT 94
[2024-06-02 07:09] LABS: Basophils % 0.7 %; Eosinophils # 0.1 10^3/uL (0.0-0.8); Eosinophils % 2.2 %; Hematocrit 36.1 % (37-53); Lymphocytes # 0.8 10^3/uL (0.8-4.8); Lymphocytes % 14.1 %; Mean Corpuscular HGB Conc 33.5 g/dL (30-55); Mean Corpuscular Hemoglobin 31.7 pg (27-33); Mean Corpuscular Volume 94.5 fl (82-101); Mean Platelet Volume 9.2 fL (7.4-10.4); Monocytes # 0.8 10^3/uL (0.2-0.9); Monocytes % 14.3 %; Neutrophils # 3.93 10^3/uL (1.8-7.7); Neutrophils % 67.7 %; Nucleated Red Blood Cells % 0 %; Platelet Count 186 10^3/cmm (157-399); Red Blood Count 3.82 10^6/uL (3.85-5.65); Red Cell Distribution Width 13.3 % (12.1-15.1); White Blood Count 5.81 10^3/uL (3.29-11.43)
[2024-06-02 08:00] VITALS: BP 119/54; PULSE 71; RESP 16; TEMP 36.9; O2SAT 91
--- NOTE | 2024-06-02 08:09 | P.DS_ITS ---
Discharge Providers Date of Admission: 06/01/2024 Date of Discharge: June 02, 2024 Attending Provider at Admission: Charan Solano MD Attending Provider at Discharge: Charan Solano M.D Primary Care Provider: Rina Koch MD Reason for Visit Reason for Visit: R94.39 Brief History: 74-year-old man with past medical histor y of hyperlipidemia, hypertension who has been having chest pain and worsening shortness of breath symptoms. Had stress test last year that was abnormal. Plan for coronary angiogram with possible PCI Hospital Course Hospital Course Patient underwent coronary angiogram that showed no moderate to severe proximal LAD stenosis. iFR was performed that confirmed severe stenosis with IFR value of 0.89. He underwent successful revascularization with 1 stent. He transiently had chest discomfort relieved with nitro. EKG did not show acute ST-T wave changes. Patient stayed stable overnight and was discharged home in a stable condition on aspirin and Plavix. We also uptitrated Crestor dose to 20 mg daily. Physical Exam Narrative: GENERAL: Patient is alert, awake and oriented x3. [] NECK: No jugular vein distension. [] HEENT: No cyanosis. No icterus. No pallor. [] HEART: Regular S1 and S2. No murmur, rub or gallop. [] LUNGS: Clear to auscultate bilaterally. [] CENTRAL NERVOUS SYSTEM: Grossly nonfocal. [] EXTREMITIES: Lower extremities with no edema bilaterally. Discharge Data Studies Completed and Pending Completed Studies During Hospitalization Category Date Time Status XR chest 1V portable [id number] Stat Exams 06/02/24 00:13 Completed Pending at discharge Category Date Time Status FORENSIC INVESTIGATOR request for service Routine Exams 06/01/24 07:30 Taken Radiology Impressions Chest X-Ray 06/02/24 00:13 IMPRESSION: No acute abnormality. Laboratory Results WBC 5.81 10^3/uL (3.29-11.43) 06/02/24 06:42 Corrected WBC Cancelled 06/02/24 02:58 RBC 3.82 10^6/uL (3.85-5.65) L 06/02/24 06:42 Hgb 12.10 g/dL (11.27-16.99) 06/02/24 06:42 Hct 36.1 % (37-53) L 06/02/24 06:42 MCV 94.5 fl (82-101) 06/02/24 06:42 MCH 31.7 pg (27-33) 06/02/24 06:42 MCHC 33.5 g/dL (30-55) 06/02/24 06:42 RDW 13.3 % (12.1-15.1) 06/02/24 06:42 Plt Count 186 10^3/cmm (157-399) 06/02/24 06:42 MPV 9.2 fL (7.4-10.4) 06/02/24 06:42 Gran % Cancelled 06/02/24 02:58 Neut % (Auto) 67.7 % 06/02/24 06:42 Lymph % (Auto) 14.1 % 06/02/24 06:42 [place] % (Auto) 14.3 % 06/02/24 06:42 Eos % (Auto) 2.2 % 06/02/24 06:42 Baso % (Auto) 0.7 % 06/02/24 06:42 Neut # (Auto) 3.93 10^3/uL (1.8-7.7) 06/02/24 06:42 Lymph # (Auto) 0.8 10^3/uL (0.8-4.8) 06/02/24 06:42 [place] # (Auto) 0.8 10^3/uL (0.2-0.9) 06/02/24 06:42 Eos # (Auto) 0.1 10^3/uL (0.0-0.8) 06/02/24 06:42 Baso # (Auto) 0.0 10^3/uL (0.0-0.1) 06/02/24 06:42 Absolute Gran (auto) Cancelled 06/02/24 02:58 Nucleated RBC % (auto) 0 % 06/02/24 06:42 Nucleated RBCs # 0.0 /100WBC 06/02/24 06:42 Sodium 137 mmol/L (136-145) 06/02/24 02:58 Potassium 4.1 mmol/L (3.5-5.1) 06/02/24 02:58 Chloride 100 mmol/L (98-107) 06/02/24 02:58 Carbon Dioxide 26 mmol/L (22-29) 06/02/24 02:58 Anion Gap 15.1 (5-19) 06/02/24 02:58 BUN 15 mg/dL (8-23) 06/02/24 02:58 Creatinine 1.1 mg/dL (0.7-1.2) 06/02/24 02:58 GFR Calculation Not Reportable 06/02/24 02:58 Glucose 86 mg/dL (65-115) 06/02/24 02:58 Calculated Osmolality 284 mOsm/kg (285-295) L 06/02/24 02:58 Calcium 9.1 mg/dL (8.5-10.5) 06/02/24 02:58 Vitals Last Vital Signs Temp 98.4 F 06/02/24 06:13 Pulse 72 06/02/24 06:13 Resp 22 H 06/02/24 06:13 BP 125/68 06/02/24 06:13 Pulse Ox 94 06/02/24 06:13 O2 Del Method Room Air 06/01/24 23:35 Discharge Plan Discharge Patient Disposition: Home Prescriptions: New clopidogrel 75 mg Tablet 75 mg PO DAILY Qty: 90 3RF Changed rosuvastatin [Crestor] 20 mg Tablet 20 mg PO BEDTIME Qty: 90 0RF No Action divalproex [Depakote ER] 500 mg tablet extended release 24 hr 500 mg PO DAILY Qty: 90 1RF Aimovig Autoinjector 140 mg/mL auto-injector See Rx Instructions .ROUTE .COMPLEX Qty: 1 3RF Dose Instruction: INJECT 140MG (CONTENTS OF 1 AUTOINJECTOR) UNDER THE SKIN EVERY MONTH CCNRX NEUROLOGY Rx Instructions: INJECT 140MG (CONTENTS OF 1 AUTOINJECTOR) UNDER THE SKIN EVERY MONTH CCNRX NEUROLOGY omeprazole 40 mg capsule,delayed release(DR/EC) 40 mg PO DAILY aspirin 81 mg Tablet,Chewable 81 mg PO DAILY coenzyme Q10 100 mg Tablet 100 mg PO DAILY docusate sodium [Colace] 100 mg capsule 100 mg PO DAILY meloxicam 7.5 mg Tablet 7.5 mg PO DAILY paroxetine HCl [Paxil] 20 mg Tablet 20 mg PO BEDTIME nitroglycerin [Nitrostat] 0.4 mg Tablet, Sublingual 0.4 mg SUBLINGUAL Q5M PRN (Reason: Chest Pain) Rx Instructions: do not exceed 3 doses per episode gabapentin 300 mg Capsule 900 mg PO BEDTIME lisinopril-hydrochlorothiazide 10-12.5 mg Tablet 1 tab PO DAILY dicyclomine 10 mg Capsule 10 mg PO TID simethicone 80 mg Tablet,Chewable 160 mg PO DAILY PRN (Reason: Gastric Reflux) duloxetine 60 mg Capsule,Delayed Release(Dr/Ec) 60 mg PO DAILY Lactobacillus acidophilus 1 billion cell Capsule 2,000 mmu cells PO DAILY Discharge Orders: Discharge Order (Routine); Ordered 06/02/24 Ordered By: Charan Solano Referrals: Isa Gracia FNP [Nurse Practitioner] - 7-10 days (We have notified your physician's clinic of the need for a follow-up appointment to be scheduled. If you have not heard from them within the next 2 business days, please call them directly. ) Diet: Cardiac Activity: Increase activity as tolerated Patient Instructions: Clopidogrel (By mouth), Coronary Angioplasty (DC) Print Language: Romanian Discharge Attestations Time Spent in Discharge Care*: less than 30 min Quality Metrics Clinical Quality Measures [ No reported AMI, CVA or VTE this stay] Coding Level of Care Code Acute Code for Chg Davi
[2024-06-02] MEDS: aspirin 81 mg EC Tablet PO (08:34)
[2024-06-02] MEDS: clopidogrel 75 mg Tablet PO (08:34)
[2024-06-02 08:36] VITALS: PULSE 74; RESP 16; O2SAT 93
--- NOTE | 2024-06-02 08:59 | PC.NURSE ---
new rx called to [facility] advice pt to pick it up prior to closing or let his pick it up prior to going home today.
== END 2024-06-02 09:59 | disposition home or self-care (01) ==
LOC: CCL 07:05 → CSU 15:51
PROVIDERS: Nurse Practitioner Family; PCP Family Medicine; Visit Provider Internal Medicine
DX: I25.10 Atherosclerotic heart disease of native coronary artery without angina pectoris (principal); E78.5 Hyperlipidemia, unspecified; I10 Essential (primary) hypertension; E66.9 Obesity, unspecified; Z68.35 Body mass index [BMI] 35.0-35.9, adult; Z87.891 Personal history of nicotine dependence; G47.33 Obstructive sleep apnea (adult) (pediatric); Z79.82 Long term (current) use of aspirin; K21.9 Gastro-esophageal reflux disease without esophagitis; R00.1 Bradycardia, unspecified
CPT/HCPCS: 36415; 71045; 80048; 85025; 85347; 93005; 93454; 93571; 96374; 99152; 99153; C1725; C1769; C1874; C1887; C1894; C9600; J1644; J2250; J3010; J3490; J7030; Q0163; Q9967

== ENCOUNTER → 2024-06-15 14:11 | Outpatient (BNVA) | payer OTHER, SELFPAY | PROVIDERS: PCP Family Medicine; Visit Provider Specialist | DX: G24.3 Spasmodic torticollis (principal) | CPT/HCPCS: 64616; J0585 ==

== ENCOUNTER → 2024-07-12 12:38 | Outpatient (BNVA) | payer OTHER, SELFPAY | PROVIDERS: PCP Family Medicine; Visit Provider Internal Medicine | DX: R07.9 Chest pain, unspecified (principal); R06.02 Shortness of breath; R00.1 Bradycardia, unspecified; G47.33 Obstructive sleep apnea (adult) (pediatric) | CPT/HCPCS: 99214 ==

== ENCOUNTER 2024-08-07 10:04 | Outpatient (CLI) | payer OTHER, SELFPAY ==
[2024-08-07 10:27] VITALS: PULSE 72; RESP 18; O2SAT 97
[2024-08-07] MEDS: albuterol 2.5 mg/3 mL Neb INHALATION (10:27)
== END 2024-08-07 10:05 | disposition home or self-care (01) ==
LOC: RT 10:05
PROVIDERS: PCP Family Medicine; Visit Provider Internal Medicine
DX: R06.02 Shortness of breath (principal)
CPT/HCPCS: 94060; 94726; 94729

== ENCOUNTER 2024-08-16 08:30 | Outpatient (CLI) | payer OTHER, SELFPAY ==
--- NOTE | 2024-08-16 08:25 | USCV_ITS ---
Sharif Livingston Age: 74 Gender: M : 1950 Exam Date: 08/16/2024 08:23 Ordering Phys: Charan Solano M.D Technologist: Exam [place] [facility] [place]: sob BP: 120 / 80 HR: 65 Rhythm: Sinus Technical Quality: Adequate MEASUREMENTS (Male / Female) Normal Values 2D ECHO LV Diastolic Diameter PLAX 4.2 cm 4.2 - 5.9 / 3.9 - 5.3 cm IVS Diastolic Thickness 1.0 cm 0.6 - 1.0 / 0.6 - 0.9 cm IVS Systolic Thickness 1.9 cm LVPW Diastolic Thickness 1.9 cm 0.6 - 1.0 / 0.6 - 0.9 cm LVPW Systolic Thickness 1.8 cm LVOT Diameter 2.1 cm LV Ejection Fraction 2D Teich 65.2 % LV Ejection Fraction MOD 4C 69.1 % LV Ejection Fraction MOD 2C 67.7 % LV Ejection Fraction 2C AL 67.8 % LA Diameter 3.3 cm RA Systolic Volume 4C AL 23.8 ml RA Systolic Volume 4C MOD 23.4 ml Aorta at Sinotubular Diameter 3.6 cm IVC Diameter 1.7 cm M-MODE LA Ao Ratio MM 1.1 AV Cusp Separation MM 2.4 cm DOPPLER AV Peak Velocity 139.0 cm/s LVOT Peak Velocity 101.0 cm/s AV Area Cont Eq vti 3.4 cm squared AV Area Cont Eq pk 2.5 cm squared MV Peak Velocity 95.0 cm/s MV Area PHT 3.0 cm squared Mitral E to A Ratio 1.0 TV Peak Velocity 196.0 cm/s TR Peak Velocity 233.0 cm/s TR Peak Gradient 21.7 mmHg TV Peak E Velocity 79.0 cm/s PV Peak Velocity 117.0 cm/s FINDINGS Left Ventricle Left ventricle is normal in size. LV systolic function is normal with EF of 60-65%. No regional wall motion abnormalities are seen. Right Ventricle Normal in size and function Right Atrium Normal in size Left Atrium Normal in size. Mitral Valve Structurally normal mitral valve. Mild mitral regurgitation. Aortic Valve Structurally normal aortic valve. No significant stenosis or regurgitation Tricuspid Valve Mild tricuspid regurgitation. Insufficient TR jet to calculate RVSP Pulmonic Valve Not well visualized Pericardium Normal Aorta Ascending aorta is mildly dilated IVC Appears to be normal CONCLUSIONS LV systolic function is normal with EF of 60-65% Mild mitral regurgitation Mild tricuspid regurgitation Ascending aorta is mildly dilated. Charan Solano MD (Electronically Signed) Final Date: 26 Aug 2024 21:40 S
== END 2024-08-16 08:31 | disposition home or self-care (01) ==
LOC: RAD 08-17 10:19
PROVIDERS: PCP Family Medicine; Visit Provider Internal Medicine
DX: R07.9 Chest pain, unspecified (principal); R06.02 Shortness of breath; I34.0 Nonrheumatic mitral (valve) insufficiency; I07.1 Rheumatic tricuspid insufficiency; I77.810 Thoracic aortic ectasia
CPT/HCPCS: 93306

== ENCOUNTER → 2024-09-14 13:00 | Outpatient (BNVA) | payer OTHER, SELFPAY | PROVIDERS: PCP Family Medicine; Visit Provider Specialist | DX: G24.3 Spasmodic torticollis (principal) | CPT/HCPCS: 64616; J0585; J9999 ==

== ENCOUNTER → 2024-12-20 10:49 | Outpatient (BNVA) | payer OTHER, SELFPAY | PROVIDERS: PCP Family Medicine; Visit Provider Student in an Organized Health Care Education/Training Program | DX: Z12.11 Encounter for screening for malignant neoplasm of colon (principal) | CPT/HCPCS: 99204 ==

== ENCOUNTER → 2025-01-15 11:18 | Outpatient (BNVA) | payer OTHER, SELFPAY | PROVIDERS: PCP Family Medicine; Visit Provider Internal Medicine | DX: R07.89 Other chest pain (principal) | CPT/HCPCS: 99214 ==

== ENCOUNTER 2025-01-22 08:01 | Day surgery (SDC) | payer OTHER, SELFPAY ==
[2025-01-22 08:15] VITALS: BP 126/92; PULSE 86; RESP 18; TEMP 36.2; O2SAT 95; BMI 33.3
--- NOTE | 2025-01-22 08:48 | ANES.PREANE2 ---
Pre-Anesthetic Assessment Height/Weight: Height 1.75 m Weight 102.512 kg Temp Pulse Resp BP Pulse Ox O2 Del Method 97.1 F L 86 18 126/92 95 Room Air 01/22/25 08:15 01/22/25 08:15 01/22/25 08:15 01/22/25 08:15 01/22/25 08:15 01/22/25 08:15 Operation Date: 01/22/25 09:30 Proposed Procedures p Colonoscopy 31723 G0105 Z12.11(Not Applicable) - Tylor Musa MD Familial anesthetic complications: none Was Beta Paul taken within 24 hours: N/A Was Clonidine taken within 24 hours: N/A Last intake: Intake Last Liquid Date 01/21/25 Last Liquid Time 23:00 Last Solid Date 01/20/25 Last Solid Time 20:00 Social No alcohol and No tobacco Exam alert and oriented x 3 Airway Submandibular: within normal limits Cervical ROM: within normal limits Mallampati: Class III Dentition: partials Pulmonary Chronic Obstructive Pulmonary Disease, Exertional Dyspnea and Shortness of Breath CV/HEM Coronary Artery Disease (1 stent placed in May. no CP since. held plavix 5 days) and Hypertension None reported Hepatic None reported GI Gastroesophageal Reflux Disease Metabolic Hyperlipidemia and Morbid Obesity Musc/skel Lower Back Pain and Osteoarthritis/DJD Neuropsych None reported Anesthetic Plan ASA status: 3 Anesthesia: Anesthesia Evaluation and MAC Risk of > 500 ml blood loss (7ml/kg in children): No Medications/Allergies Home Medications ?Medication ?Instructions ?Recorded ?Confirmed ?Last Taken ?Type aspirin 81 mg chewable tablet 81 mg PO DAILY 07/24/19 01/17/25 01/17/25 History coenzyme Q10 100 mg tablet 100 mg PO DAILY 07/24/19 01/17/25 01/21/25 History omeprazole 40 mg capsule,delayed 20 mg PO DAILY 11/25/20 01/17/25 01/21/25 History release dicyclomine 10 mg capsule 10 mg PO TID 07/08/22 01/17/25 01/21/25 History gabapentin 300 mg capsule 900 mg PO BEDTIME 07/08/22 01/17/25 01/16/25 History lisinopril 10 1 tab PO DAILY 07/08/22 01/17/25 01/21/25 History mg-hydrochlorothiazide 12.5 mg tablet meloxicam 7.5 mg tablet 7.5 mg PO DAILY PRN Pain 07/08/22 01/17/25 06/01/24 05:30 History nitroglycerin 0.4 mg sublingual 0.4 mg sublingual Q5M PRN Chest 07/08/22 01/17/25 07/08/22 History tablet (Nitrostat) Pain simethicone 80 mg chewable tablet 160 mg PO DAILY PRN Gastric Reflux 07/08/22 01/17/25 Unknown History clopidogrel 75 mg tablet 75 mg PO DAILY #90 tabs 06/02/24 01/17/25 01/16/25 Rx rosuvastatin 20 mg tablet (Crestor) 20 mg PO BEDTIME #90 tabs 06/02/24 01/17/25 01/21/25 Rx albuterol sulfate 90 mcg/actuation 2 puff inhalation Q6H PRN 07/12/24 01/17/25 01/21/25 History aerosol inhaler (Ventolin HFA) Shortness Of Breath Allergies Allergy/AdvReac Type Severity Reaction Status Date / Time No Known Allergies Allergy Verified 01/17/25 10:37 Current Medications Generic Name Dose Route Start Last Admin Trade Name Freq PRN Reason Stop Dose Admin Sodium Chloride 1,000 mls @ 15 mls/hr 01/22/25 08:04 01/22/25 08:19 Sodium Chloride 0.9% IV 01/23/25 08:03 15 mls/hr .Q24H PRN Administration COLONOSCOPY FLUIDS PFSH Anesthesia Medical History Bradycardia Esophageal stricture History of colon polyps Chronic GERD MERY (obstructive sleep apnea) Surgical History Status post right inguinal hernia repair (11/26/20) H/O esophagogastroduodenoscopy (10/23/20) History of repair of ACL left Status post colonoscopy with polypectomy (10/23/20) H/O vasectomy Family History Denies family history of Diabetes CAD (coronary artery disease) Chronic kidney disease (CKD) Anesthesia complication Bleeding disorder Lung disease Hypertension Social History Smoking and tobacco/nicotine status: former use of tobacco/nicotine Quit status (tobacco/nicotine): has quit using Year quit tobacco: 1995 Former quit date comment: 1-2 PPD FOR 26 YEARS Alcohol intake: current Alcohol intake frequency: few times a month Alcohol type: beer Substance/Drug Use: never Lives independently: Yes Household members: spouse Marital status: Current occupational status: retired Data Anesthesia Cardiac Studies: Echocardiogram 08/16/24 Sestamibi Stress Test (Cardiology) 07/13/23 Cardiac Event Monitor 05/28/24
--- NOTE | 2025-01-22 09:21 | W.PM.OPSFHP ---
Same Day Surgery H&P Indication for Procedure/HPI DATE OF PROCEDURE: January 22, 2025 CHIEF COMPLAINT/INDICATIONFOR SURGICAL PROCEDURE: screening colonoscopy PREOP DIAGNOSIS: screening colonoscopy PLANNED PROCEDURE: Operation Date: 01/22/25 09:30 Proposed Procedures p Colonoscopy 24519 G0105 Z12.11(Not Applicable) - Tylor Musa MD Medications/Allergies* Home Medications ?Medication ?Instructions ?Recorded ?Confirmed ?Type aspirin 81 mg chewable tablet 81 mg PO DAILY 07/24/19 01/17/25 History coenzyme Q10 100 mg tablet 100 mg PO DAILY 07/24/19 01/17/25 History omeprazole 40 mg capsule,delayed 20 mg PO DAILY 11/25/20 01/17/25 History release dicyclomine 10 mg capsule 10 mg PO TID 07/08/22 01/17/25 History gabapentin 300 mg capsule 900 mg PO BEDTIME 07/08/22 01/17/25 History lisinopril 10 1 tab PO DAILY 07/08/22 01/17/25 History mg-hydrochlorothiazide 12.5 mg tablet meloxicam 7.5 mg tablet 7.5 mg PO DAILY PRN Pain 07/08/22 01/17/25 History nitroglycerin 0.4 mg sublingual 0.4 mg sublingual Q5M PRN Chest 07/08/22 01/17/25 History tablet (Nitrostat) Pain simethicone 80 mg chewable tablet 160 mg PO DAILY PRN Gastric Reflux 07/08/22 01/17/25 History albuterol sulfate 90 mcg/actuation 2 puff inhalation Q6H PRN 07/12/24 01/17/25 History aerosol inhaler (Ventolin HFA) Shortness Of Breath Allergies/Adverse Reactions Allergy/AdvReac Type Severity Reaction Status Date / Time No Known Allergies Allergy Verified 01/17/25 10:37 Current Medications: Generic Name Dose Route Start Last Admin Trade Name Freq PRN Reason Stop Dose Admin Sodium Chloride 1,000 mls @ 15 mls/hr 01/22/25 08:04 01/22/25 08:19 Sodium Chloride 0.9% IV 01/23/25 08:03 15 mls/hr .Q24H PRN Administration COLONOSCOPY FLUIDS Pertinent History/Comorbid Conditions* Medical History (Updated 06/01/24 @ 15:06 by Alissa Verdugo NP) Bradycardia Esophageal stricture History of colon polyps Chronic GERD MERY (obstructive sleep apnea) Surgical History (Updated 12/10/20 @ 09:41 by Florencio Ang MD) Status post right inguinal hernia repair (11/26/20) H/O esophagogastroduodenoscopy (10/23/20) History of repair of ACL left Status post colonoscopy with polypectomy (10/23/20) H/O vasectomy Family History (Updated 08/07/19 @ 10:21 by Shea Andrade) Denies family history of Diabetes CAD (coronary artery disease) Chronic kidney disease (CKD) Anesthesia complication Bleeding disorder Lung disease Hypertension Social History Smoking and tobacco/nicotine status: former use of tobacco/nicotine Quit status (tobacco/nicotine): has quit using Year quit tobacco: 1995 Former quit date comment: 1-2 PPD FOR 26 YEARS Alcohol intake: current Alcohol intake frequency: few times a month Alcohol type: beer Substance/Drug Use: never Lives independently: Yes Household members: spouse Marital status: Current occupational status: retired Pertinent Exam Findings alert, oriented x 3, clear to auscultation bilaterally, regular rate & rhythm and procedure specific exam findings abdomen soft, nt, nd Recommendations Risks and benefits of procedure reviewed and Patient/family agree to proceed Surgery/Procedure today Coding Level of Care Code Acute Code for Chg Fwd
[2025-01-22 09:50] VITALS: BP 118/74; PULSE 63; RESP 18; TEMP 36.2; O2SAT 91
[2025-01-22 10:15] VITALS: BP 118/84; PULSE 75; RESP 18; O2SAT 96
--- NOTE | 2025-01-22 10:22 | ANE.PACU2 ---
Inpatient post-anesthesia follow up: Airway intact: Yes Vital signs: Temperature 97.2 F Pulse Rate 75 Respiratory Rate 18 Blood Pressure 118/84 Pulse Oximetry 96 Oxygen Delivery Me thod Room Air Oxygen Flow Rate Fraction of Inspir ed Oxygen Hydration adequate: Yes Nausea and vomiting: No Pain level: 1 Mental status: Baseline
== END 2025-01-22 10:22 | disposition home or self-care (01) ==
PROVIDERS: PCP Family Medicine; Visit Provider Student in an Organized Health Care Education/Training Program
PROC: 0DJD8ZZ Inspection of Lower Intestinal Tract, Via Natural or Artificial Opening Endoscopic (ICD-10-PCS; CPT 45378; principal; 2025-01-22 09:30)
DX: Z12.11 Encounter for screening for malignant neoplasm of colon (principal); Z79.82 Long term (current) use of aspirin; K21.9 Gastro-esophageal reflux disease without esophagitis; R00.1 Bradycardia, unspecified; G47.33 Obstructive sleep apnea (adult) (pediatric); Z87.891 Personal history of nicotine dependence; J44.9 Chronic obstructive pulmonary disease, unspecified; I25.10 Atherosclerotic heart disease of native coronary artery without angina pectoris; Z95.5 Presence of coronary angioplasty implant and graft; I10 Essential (primary) hypertension; E78.5 Hyperlipidemia, unspecified; E66.01 Morbid (severe) obesity due to excess calories; Z68.33 Body mass index [BMI] 33.0-33.9, adult
CPT/HCPCS: 45378; J2704; J7030

== ENCOUNTER → 2025-01-28 13:33 | Outpatient (BNVA) | payer OTHER, SELFPAY | PROVIDERS: PCP Family Medicine; Visit Provider Specialist | DX: G43.711 Chronic migraine without aura, intractable, with status migrainosus (principal); R03.0 Elevated blood-pressure reading, without diagnosis of hypertension; G24.3 Spasmodic torticollis; M54.2 Cervicalgia | CPT/HCPCS: 99214 ==

== ENCOUNTER 2025-02-05 10:24 | Outpatient (CLI) | payer OTHER, SELFPAY ==
--- NOTE | 2025-02-05 10:28 | MR_ITS ---
WS: [id number] MRI LUMBAR SPINE NONCONTRAST TECHNIQUE: Sagittal T1, T2 and STIR imaging. Axial T1 and T2 imaging. CLINICAL INFORMATION: LOW BACK PAIN COMPARISON: MRI 2020 FINDINGS: Mild lumbar curve. No acute compression. Slight retrolisthesis L1 on L2, L2 on L3 and L3 on L4. No high-grade central canal stenosis. Disc desiccation worse at L2-L3 and L3-4 progressed compared to previous L1-L2: Slight retrolisthesis. Mild annular bulging. Mild facet arthropathy. Slight narrowing of the LEFT subarticular recess. Foramen are patent. L2-L3: Slight retrolisthesis. Mild disc bulging with mild central canal stenosis. Narrowing of the subarticular recess bilaterally. Moderate facet arthropathy. LEFT foraminal protrusion with mild LEFT foraminal narrowing. L3-L4: Mild annular bulging. Moderate narrowing of the thecal sac with prominent epidural fat. Narrowing of the RIGHT subarticular recess. Moderate facet arthropathy. Mild RIGHT greater than LEFT foraminal narrowing. L4-L5: Shallow central protrusion with mild central canal stenosis. Narrowing of the RIGHT subarticular recess. Moderate RIGHT foraminal narrowing. LEFT foramen is patent. L5-S1: Slight retrolisthesis. Spinal canal and foramen are patent. Visualized pelvic bony structures: Normal. Paravertebral soft tissues: Normal. MR/MR lumbar spine wo con* [id number] IMPRESSION: 1. Mild lumbar curve. No acute compression. Slight retrolisthesis L1 on L2, L2 on L3 and L3 on L4. 2. Moderate narrowing of the thecal sac L3-4 with prominent epidural fat and n arrowing of the RIGHT subarticular recess. This is progressed compared to previ ous. 3. Mild central canal stenosis L4-5 with impingement on RIGHT subarticular rec ess with a small central RIGHT paracentral protrusion. This is progressed omi red to previous. 4. Moderate RIGHT L4-5 foraminal narrowing. 5. Mild central canal stenosis L2-3 with narrowing of the LEFT subarticular re cess is progressed.
== END 2025-02-05 10:25 | disposition home or self-care (01) ==
PROVIDERS: PCP Family Medicine; Visit Provider Family Medicine
DX: M43.16 Spondylolisthesis, lumbar region (principal); M48.061 Spinal stenosis, lumbar region without neurogenic claudication; M51.16 Intervertebral disc disorders with radiculopathy, lumbar region
CPT/HCPCS: 72148

== ENCOUNTER 2025-02-13 08:59 | Outpatient (CLI) | payer OTHER, SELFPAY ==
[2025-02-13 09:18] VITALS: PULSE 61; RESP 18; O2SAT 98
== END 2025-02-13 09:00 | disposition home or self-care (01) ==
LOC: RT 09:02
PROVIDERS: PCP Family Medicine; Visit Provider Internal Medicine
DX: R06.02 Shortness of breath (principal); G47.33 Obstructive sleep apnea (adult) (pediatric)
CPT/HCPCS: 94060; 94726; 94729; J7613

== ENCOUNTER → 2025-02-21 14:57 | Outpatient (BNVA) | payer OTHER, SELFPAY | PROVIDERS: PCP Family Medicine; Visit Provider Specialist | DX: G24.3 Spasmodic torticollis (principal); G43.711 Chronic migraine without aura, intractable, with status migrainosus; R03.0 Elevated blood-pressure reading, without diagnosis of hypertension; M54.2 Cervicalgia | CPT/HCPCS: 64616; J0585; J9999 ==